=== PATIENT | female | born 1950 | race African-American/Black ===

== ENCOUNTER 2016-11-29 09:17 | Observation (INO) ==
[2016-11-29 11:02] LABS: Basophils % 0.3 %; Eosinophils # 0.2 K/mcL (0.0-0.6); Eosinophils % 2.3 %; Hemoglobin 7.1 g/dL (11.5-15.4); Immature Granulocytes % 0.4 % (0-4); Lymphocytes # 2.5 K/mcL (0.6-4.6); Lymphocytes % 24.7 %; Mean Corpuscular HGB Conc 30.9 g/dL (31.6-35.5); Mean Corpuscular Hemoglobin 25.7 pg (28.0-33.3); Mean Corpuscular Volume 83.3 fL (83.0-100.0); Mean Platelet Volume 13.1 fL (9.4-12.4); Monocytes # 0.6 K/mcL (0.0-1.3); Monocytes % 6.4 %; Neutrophils # 6.6 K/mcL (1.6-8.9); Platelet Count 213 K/mcL (140-400); Red Blood Count 2.76 M/mcL (3.82-4.97); Red Cell Distribution Width 17.5 % (11.5-14.5); Segmented Neutrophils % 65.9 %
[2016-11-29 11:06] LABS: INR 1.5; Prothrombin Time 16.6 Seconds (9.4-12.1)
[2016-11-29 11:08] LABS: Activated Partial Thrombo Time 39.2 Seconds (26.0-36.0)
[2016-11-29 11:15] LABS: Alanine Aminotransferase 12 Units/L (0-55); Albumin/Globulin Ratio 0.8 (1.1-2.2); Alkaline Phosphatase 86 Units/L (38-126); Aspartate Amino Transferase 14 Units/L (5-34); BUN/Creatinine Ratio 14 (6-26); Blood Urea Nitrogen 19 mg/dL (7-20); Calcium 8.9 mg/dL (8.6-10.8); Carbon Dioxide 21 mEq/L (19-29); Chloride 113 mEq/L (98-109); Globulin 3.9 g/dL (2.4-3.5); Glucose 88 mg/dL (70-99); Lipase 48 Units/L (8-78); Osmolality,Calculated 294 (280-300); Potassium 3.5 mEq/L (3.5-4.5); Sodium 141 mEq/L (136-145); Total Protein 6.9 g/dL (6.0-8.3); eGFR For African Americans 46 (> 60); eGFR For Non-African Americans 38 (> 60)
[2016-11-29 11:16] LABS: Bilirubin,Direct < 0.1 mg/dL (0.0-0.5); Bilirubin,Indirect < 0.1 mg/dL (0.0-1.2); Bilirubin,Total < 0.2 mg/dL (0.2-1.2)
--- NOTE | 2016-11-29 11:36 | Emergency Department Note ---
Disposition Clinical Impression: Anemia Qualifiers: Anemia type: unspecified type Qualified Code(s): D64.9 - Anemia, unspecified Disposition: Admitted As Inpatient Condition: Good Referrals: Eli Ling MD [Primary Care Provider] - Forms: Work/School Release, ED Satisfaction Letter Time of Disposition: 12:58 General Adult HPI - General Chief complaint: ED General Medical Stated complaint: 1.7 warfarin level Time Seen by Provider: 11/29/16 10:29 Source: patient Limitations: no limitations Nursing Notes Reviewed: Yes Vital Signs Reviewed: Yes - History of Present Illness HPI Narrative: 66 year old female states that she was sent here by her doctor because her INR level was 1.7, although that is expected because she has stopped her coumadin therapy due to a colonoscpy she is getting tomorrow. There appears to be a disconnect in the why she is here because she sttes tht she is sent here because of an !NR of 1.7, and that the doctors want it below 2. This happens to be the case. She also cannot give me the name of her doctor tht sent her here. She takes coumsin for a artifical valve in her heart. I think that maybe she was sent here for her elevted blood pressures. She states that however her blood pressure is expected to be elevated due to not taking her medications this morning for her blood presure. She is asymptomatic Pain Scale: 0 - Related Data Home Medications Medication Instructions Recorded Confirmed Amlodipine [Norvasc] 5 mg PO DAILY 10/29/14 11/29/16 Docusate Sodium [Colace] 100 mg PO BID PRN 10/29/14 11/29/16 Ferrous Sulfate 325 mg PO BID 10/29/14 11/29/16 Metoprolol [Lopressor] 25 mg PO BID 10/29/14 11/29/16 Nitroglycerin 0.4 mg TD AD PRN 10/29/14 11/29/16 Pregabalin [Lyrica] 75 mg PO BID 10/29/14 11/29/16 [place] Oil/[place]-3 Fatty Acids 1,000 mg PO DAILY 10/29/14 11/29/16 [Fish Oil 500 mg Softgel] Warfarin [Coumadin] 2.5 mg PO CLEMENT 10/29/14 11/29/16 Losartan Potassium [Cozaar] 50 mg PO DAILY 11/01/15 11/29/16 Sennosides/Docusate Sodium [Senna 2 tab PO HS PRN 11/01/15 11/29/16 Plus] Simvastatin [Zocor] 40 mg PO HS 11/01/15 11/29/16 SitaGLIPtin [Januvia] 100 mg PO DAILY 11/01/15 11/29/16 Aspirin Enteric Coated [Aspirin EC] 81 mg PO DAILY 08/03/16 11/29/16 Multivitamin [Multi-Day Vitamins] 1 tab PO DAILY 08/03/16 11/29/16 Bisacodyl [Dulcolax] 5 mg PO QWEEK PRN 08/07/16 11/29/16 Ergocalciferol (VITAMIN D2) 50,000 unit PO QWEEK 08/07/16 11/29/16 [Vitamin D2] glyBURIDE [GlyBURIDE] 5 mg PO BIDWM 08/09/16 11/29/16 Omeprazole [PriLOSEC] 40 mg PO DAILY 11/29/16 11/29/16 Oxycodone HCl [Oxycodone HCl] 10 mg PO TID 11/29/16 11/29/16 Warfarin [Coumadin] 5 mg PO THFRSA 11/29/16 11/29/16 Previous Rx's Medication Instructions Recorded Cyanocobalamin (B-12) [Vitamin B12] 1,000 mcg PO DAILY #30 tablet 11/15/16 Folic Acid 1 mg PO DAILY #30 tablet 11/15/16 Allergies Allergy/AdvReac Type Severity Reaction Status Date / Time gabapentin [From Neurontin] Allergy Itching Verified 11/29/16 09:30 ibuprofen Allergy Itching Verified 11/29/16 09:30 iodine Allergy Hives Verified 11/29/16 09:30 lisinopril Allergy facial Verified 11/29/16 09:30 swelling naproxen [From Naprosyn] Allergy Itching Verified 11/29/16 09:30 Constitutional: Denies: fever, chills, weakness, weight change Eyes: Denies: eye pain, eye discharge, vision change ENT ED: Denies: ear pain, throat pain, dental pain, hearing loss, epistaxis, congestion, dysphagia Cardiovascular: Denies: chest pain, palpitations, dyspnea on exertion, edema, syncope Respiratory: Denies: cough, dyspnea, wheezes, hemoptysis, stridor Gastrointestinal: Denies: abdominal pain, nausea, vomiting, diarrhea, constipation, hematemesis, melena, hematochezia Genitourinary: Denies: dysuria, frequency, hematuria, discharge Musculoskeletal: Denies: back pain, neck pain, arthralgia, myalgia Integumentary: Denies: rash, abrasion, lesions Neurological: Denies: headache, weakness, numbness, paresthesias, confusion, abnormal gait, vertigo Psychiatric: Denies: anxiety, depression, suicidal thoughts, homicidal thoughts , auditory hallucinations, visual hallucinations Endocrine: Denies: fatigue Hematological/Lymphatic: Denies: easy bleeding, easy bruising Allergic/Immunologic: Denies: facial swelling, urticaria Past Medical History - Past Medical History Medical history: Reports: coronary artery disease, CVA, DVT, diabetes, hyperlipidemia, hypertension, renal disease Surgical history: Reports: heart valve replacement, hysterectomy Psychiatric history: Reports: depression - Social History Smoking Status: Current every day smoker Smokeless Tobacco Status: No Alcohol use: Reports: none Drug use: Reports: none Physical Exam - General Limitations: no limitations General appearance: alert, in no apparent distress - Head Head exam: atraumatic, normocephalic, normal inspection - Eye Eye exam: Present: normal appearance, PERRL, EOMI - Expanded Eye Exam Pupils: Left: reactive - ENT ENT exam: normal exam, normal oropharynx, mucous membranes moist - Expanded ENT Exam External ear exam: Present: normal external inspection Mouth exam: Present: normal external inspection Teeth exam: Present: normal inspection Throat exam: Present: normal inspection - Neck Neck exam: Present: normal inspection, full ROM, trachea midline - Chest Chest inspection: Present: normal inspection, symmetric chest wall rise - Respiratory Respiratory exam: Present: normal lung sounds bilaterally - Cardiovascular Cardiovascular exam: Present: regular rate, normal rhythm, normal heart sounds - Abdominal Exam Abdominal exam: Present: soft, Non-Tender. Absent: tenderness, distention, guarding, rebound, rigidity - Extremities Exam Extremities exam: Present: normal inspection, full ROM. Absent: tenderness, pedal edema - Expanded Upper Extremity Exam Shoulder exam: Present: normal inspection, full ROM Arm exam: Present: normal inspection, full ROM Elbow exam: Present: normal inspection, full ROM Forearm/Wrist exam: Present: normal inspection, full ROM Hand exam: Present: normal inspection, full ROM Vascular exam: Normal: capillary refill, radial pulse - Expanded Lower Extremity Exam Hip/Pelvis exam: Present: normal inspection, full ROM Upper leg exam: Present: normal inspection, full ROM Knee exam: Present: normal inspection, full ROM Lower leg exam: Present: normal inspection, full ROM Ankle exam: Present: normal inspection, full ROM Foot/toe exam: Present: normal inspection, full ROM Neurovascular/Tendon exam: Absent: motor deficit, sensory deficit, tendon deficit - Back Exam Back exam: Present: normal inspection, full ROM. Absent: tenderness - Neurological Exam Neurological exam: Present: alert, oriented X3 - Expanded Neurological Exam Patient oriented to: Present: person, place, time Coma Scale Eye Opening: Spontaneous Coma Scale Motor Response: Obeys Commands Coma Scale Verbal Response: Oriented Coma Scale Total: 15 - Psychiatric Psychiatric exam: Present: normal affect, normal mood - Skin Skin exam: Present: warm, dry, intact, normal color Course Course Narrative: we will do a HTN workup and treat with hydralazine - Reevaluation(s) Reevaluation #1: after discussing resutls with the bing it appers it is her HGB of 7.1 and not INR of 1.7 that is the problme. She has a history of numerous tranfsions including one from last week and thus the reasons for the colonoscopy tomrrow. She stephen blood from the rectum or bloody stools. We will admit ot moises with 2 units transfusion. Time: 12:43 - Consultations Consultation #1: discussed case with Dr. Leone and he accepst nilda for admission. Time: 01:30 Vital Signs Temperature 98.3 F 11/29/16 09:27 Pulse Rate 68 11/29/16 09:27 Respiratory Rate 18 11/29/16 09:27 Blood Pressure 202/72 11/29/16 09:27 O2 Sat by Pulse Oximetry 100 11/29/16 09:27 Temperature 98.3 F 11/29/16 09:27 Pulse Rate 62 11/29/16 11:47 Respiratory Rate 16 11/29/16 11:47 Blood Pressure 165/50 11/29/16 11:47 O2 Sat by Pulse Oximetry 100 11/29/16 09:27 Oxygen Delivery Oxygen Delivery Room Air Medical Decision Making - Lab Data Result diagrams: 11/29/16 10:53 11/29/16 10:53 Lab Results 11/29/16 11/29/16 11/29/16 Range/Units 10:53 10:53 10:53 WBC (4.3-11.1) K/mcL RBC (3.82-4.97) M/mcL Hgb (11.5-15.4) g/dL Hct (35.3-44.9) % MCV (83.0-100.0) fL MCH (28.0-33.3) pg MCHC (31.6-35.5) g/dL RDW (11.5-14.5) % Plt Count (140-400) K/mcL MPV (9.4-12.4) fL Immature Gran % (0-4) % Seg Neutrophils % % Lymphocytes % % Monocytes % % Eosinophils % % Basophils % % Neutrophils # (1.6-8.9) K/mcL Lymphocytes # (0.6-4.6) K/mcL Monocytes # (0.0-1.3) K/mcL Eosinophils # (0.0-0.6) K/mcL Basophils # (0.0-0.2) K/mcL PT 16.6 H (9.4-12.1) Seconds INR 1.5 APTT 39.2 H (26.0-36.0) Seconds Sodium 141 (136-145) mEq/L Potassium 3.5 (3.5-4.5) mEq/L Chloride 113 H (98-109) mEq/L Carbon Dioxide 21 (19-29) mEq/L BUN 19 (7-20) mg/dL Creatinine 1.39 H (0.57-1.11) mg/dL Est GFR ( Amer) 46 L (> 60) Est GFR (Non-Af Amer) 38 L (> 60) BUN/Creatinine Ratio 14 (6-26) Glucose 88 (70-99) mg/dL Calculated Osmolality 294 (280-300) Calcium 8.9 (8.6-10.8) mg/dL Total Bilirubin < 0.2 L (0.2-1.2) mg/dL Direct Bilirubin < 0.1 (0.0-0.5) mg/dL Indirect Bilirubin < 0.1 (0.0-1.2) mg/dL AST 14 (5-34) Units/L ALT 12 (0-55) Units/L Alkaline Phosphatase 86 (38-126) Units/L Troponin I (0-0.03) ng/mL B-Natriuretic Peptide 338 H (0-100) pg/mL Serum Total Protein 6.9 (6.0-8.3) g/dL Albumin 3.0 L (3.5-5.0) g/dL Globulin 3.9 H (2.4-3.5) g/dL Albumin/Globulin Ratio 0.8 L (1.1-2.2) Lipase 48 (8-78) Units/L 11/29/16 11/29/16 Range/Units 10:53 10:53 WBC 10.1 (4.3-11.1) K/mcL RBC 2.76 L (3.82-4.97) M/mcL Hgb 7.1 L (11.5-15.4) g/dL Hct 23.0 L (35.3-44.9) % MCV 83.3 (83.0-100.0) fL MCH 25.7 L (28.0-33.3) pg MCHC 30.9 L (31.6-35.5) g/dL RDW 17.5 H (11.5-14.5) % Plt Count 213 (140-400) K/mcL MPV 13.1 H (9.4-12.4) fL Immature Gran % 0.4 (0-4) % Seg Neutrophils % 65.9 % Lymphocytes % 24.7 % Monocytes % 6.4 % Eosinophils % 2.3 % Basophils % 0.3 % Neutrophils # 6.6 (1.6-8.9) K/mcL Lymphocytes # 2.5 (0.6-4.6) K/mcL Monocytes # 0.6 (0.0-1.3) K/mcL Eosinophils # 0.2 (0.0-0.6) K/mcL Basophils # 0.0 (0.0-0.2) K/mcL PT (9.4-12.1) Seconds INR APTT (26.0-36.0) Seconds Sodium (136-145) mEq/L Potassium (3.5-4.5) mEq/L Chloride (98-109) mEq/L Carbon Dioxide (19-29) mEq/L BUN (7-20) mg/dL Creatinine (0.57-1.11) mg/dL Est GFR ( Amer) (> 60) Est GFR (Non-Af Amer) (> 60) BUN/Creatinine Ratio (6-26) Glucose (70-99) mg/dL Calculated Osmolality (280-300) Calcium (8.6-10.8) mg/dL Total Bilirubin (0.2-1.2) mg/dL Direct Bilirubin (0.0-0.5) mg/dL Indirect Bilirubin (0.0-1.2) mg/dL AST (5-34) Units/L ALT (0-55) Units/L Alkaline Phosphatase (38-126) Units/L Troponin I 0.01 (0-0.03) ng/mL B-Natriuretic Peptide (0-100) pg/mL Serum Total Protein (6.0-8.3) g/dL Albumin (3.5-5.0) g/dL Globulin (2.4-3.5) g/dL Albumin/Globulin Ratio (1.1-2.2) Lipase (8-78) Units/L - EKG Data EKG #1 EKG attestation: Yes I reviewed and interpreted this EKG. EKG results narrative: NSR with rate of 64. NO STEMI. normal intervals. no old ekg. 0829
[2016-11-29] MEDS ORDERED: Sennosides/Docusate Sodium TABLET PO PRN (13:42)
[2016-11-29] MEDS ORDERED: Nitroglycerin 0.4 MG PATCH.TD24 TD PRN (13:42)
[2016-11-29] MEDS ORDERED: Naloxone 0.4 MG/ML INJ IVP PRN (13:45)
[2016-11-29] MEDS ORDERED: Dextrose Gel 15 GM PO PRN ×2 (13:53)
[2016-11-29] MEDS ORDERED: *HR* Dextrose 50 % in Water (Syg) 50 ML SYRINGE IVP PRN (13:53)
[2016-11-29] MEDS ORDERED: D5% in Water 1,000 ML IVC PRN (13:53)
[2016-11-29] MEDS ORDERED: Heparin 25,000 UNIT/500 ML D5W 25,000 UNIT/500 ML MLS IVC SCH (14:00)
--- NOTE | 2016-11-29 14:01 | Internal Med History&Physical ---
Date of Encounter: 11/29/16 Time of Encounter: 13:00 Assessment and Plan (1) Anemia Current visit: Yes Status: Acute multifactorial anemia due to monoclonal gammopathy, chronic kidney disease, iron deficiency. Rule out colonic source with colonoscopy tomorrow. Patient has symptomatic anemia, given her hemoglobin of 7.1, and potential surgical biopsy, will transfuse 1 unit packed red blood cells She does not appear to be actively bleeding. Heparin drip as discussed with . Coumadin is held. Will repeat INR in the morning. Restart anticoagulation when appropriate by gastroenterology. Qualifiers: Anemia type: unspecified type Qualified Code(s): D64.9 - Anemia, unspecified (2) CKD (chronic kidney disease), stage III Current visit: No Status: Acute stable, monitor. (3) SAHARA (iron deficiency anemia) Current visit: No Status: Acute outpatient iron infusions. Qualifiers: Iron deficiency anemia type: unspecified iron deficiency Qualified Code(s) : D50.9 - Iron deficiency anemia, unspecified (4) MGUS (monoclonal gammopathy of unknown significance) Current visit: No Status: Chronic followed by oncology (5) DVT (deep venous thrombosis) Current visit: Yes Status: Acute Remote on chart review, pt denies hx DVT Qualifiers: (6) Diabetes mellitus Current visit: Yes Status: Acute Qualifiers: Diabetes mellitus type: type 2 Diabetes mellitus complication status: with kidney complications Diabetes mellitus complication detail: with nephropathy (7) Hypertension Current visit: Yes Status: Acute Elebvated, continue, home medications, monitor IV Hydralazine prn Internal Medicine - H&P: HPI Admitted From: Emergency Dept Plans for Post Hospital Care: Home History of present illness: Ms. Sanchez is a 66 year old female with a past medical history of a mechanical mitral valve in 2016 for which she is chronically on Coumadin. he also has non- insulin-dependent diabetes mellitus type II, chronic kidney disease stage III, hypertension, chronic pain. She also has a history of anemia worked up by both gastroenterology and hematology. MGUS followed by oncology. She had a colonoscopy about a 1 month ago which was an incomplete study. She is now admitted for colonoscopy in the morning. she last took Coumadin 3 days ago. Her INR today is 1.5. We are asked to admit this patient, place her on a heparin drip, in preparation for her procedure. Patient has been seen by hematology and has received IV iron and oral folate supplementation. Records indicate her baseline hemoglobin in the 8-10 range over the last several months. today it is 7.1. Patient does report fatigue. She denies any chest pain or shortness of breath No N/V/D, no F/C. no blood in stool. She states she received a unit of blood about a week ago. Past Med Surg Social Fam HX - Past Medical History Medical history: coronary artery disease, CVA, DVT, diabetes, hyperlipidemia, hypertension, renal disease, other (anemia) Psychiatric history: depression - Past Surgical History Surgical History: heart valve replacement, hysterectomy - Social History Smoking Status: Current every day smoker Smokeless Tobacco Status: No Alcohol use: none Drug use: none Internal Medicine - H&P: Meds Amlodipine [Norvasc] 5 mg PO DAILY 10/29/14 [History] Docusate Sodium [Colace] 100 mg PO BID PRN 10/29/14 [History] Ferrous Sulfate 325 mg PO BID 10/29/14 [History] Metoprolol [Lopressor] 25 mg PO BID 10/29/14 [History] Nitroglycerin 0.4 mg TD AD PRN 10/29/14 [History] Pregabalin [Lyrica] 75 mg PO BID 10/29/14 [History] [place] Oil/[place]-3 Fatty Acids [Fish Oil 500 mg Softgel] 1,000 mg PO DAILY 10/29 [History] Warfarin [Coumadin] 2.5 mg PO CLEMENT 10/29/14 [History] Losartan Potassium [Cozaar] 50 mg PO DAILY 11/01/15 [History] Sennosides/Docusate Sodium [Senna Plus] 2 tab PO HS PRN 11/01/15 [History] Simvastatin [Zocor] 40 mg PO HS 11/01/15 [History] SitaGLIPtin [Januvia] 100 mg PO DAILY 11/01/15 [History] Aspirin Enteric Coated [Aspirin EC] 81 mg PO DAILY 08/03/16 [History] Multivitamin [Multi-Day Vitamins] 1 tab PO DAILY 08/03/16 [History] Bisacodyl [Dulcolax] 5 mg PO QWEEK PRN 08/07/16 [History] Ergocalciferol (VITAMIN D2) [Vitamin D2] 50,000 unit PO QWEEK 08/07/16 [History] glyBURIDE [GlyBURIDE] 5 mg PO BIDWM 08/09/16 [History] Cyanocobalamin (B-12) [Vitamin B12] 1,000 mcg PO DAILY #30 tablet 11/15/16 [Rx] Folic Acid 1 mg PO DAILY #30 tablet 11/15/16 [Rx] Omeprazole [PriLOSEC] 40 mg PO DAILY 11/29/16 [History] Oxycodone HCl [Oxycodone HCl] 10 mg PO TID 11/29/16 [History] Warfarin [Coumadin] 5 mg PO THFRSA 11/29/16 [History] 3 Allergy/AdvReac Type Severity Reaction Status Date / Time gabapentin [From Neurontin] Allergy Itching Verified 11/29/16 09:30 ibuprofen Allergy Itching Verified 11/29/16 09:30 iodine Allergy Hives Verified 11/29/16 09:30 lisinopril Allergy facial Verified 11/29/16 09:30 swelling naproxen [From Naprosyn] Allergy Itching Verified 11/29/16 09:30 All Systems PM: A 10-system review of systems was performed and is negative for pertinent findings except as documented above in the HPI. - Constitutional Vitals: Temp Pulse Resp BP Pulse Ox 98.3 F 62 17 165/45 100 11/29/16 09:27 11/29/16 11:47 11/29/16 13:36 11/29/16 13:36 11/29/16 09:27 General appearance: Present: A&O X 3, pleasant, no acute distress - Eye Eye exam: Present: sclera anicteric (pale) Internal Med - H&P Results - Labs CBC & Chem 7: 11/29/16 10:53 11/29/16 10:53
[2016-11-29] MEDS ORDERED: *HR* Heparin 5,000 UNIT/ML VIAL IVP PRN ×2 (14:39)
[2016-11-29] MEDS ORDERED: Lidocaine -MPF 2% 2 ML VIAL INFILT ONE (15:24)
--- NOTE | 2016-11-29 15:34 | Gastroenterology Consult Note ---
<Natalya Fuentes - Last Filed: 11/29/16 18:18> Date of Encounter: 11/29/16 Time of Encounter: 15:26 - Assessment and plan (1) Anemia Current Visit: Yes Status: Acute Assessment and plan: Patient recently had colonoscopy 08/07/16, which was incomplete due to poor prep. She had non bleeding polyps removed from the ascending, transverse, and sigmoid colon. Her EGD was unremarkable. At that time, repeat colonoscopy was recommended in three months for surveillance. Hg today 7.1. Baseline Hg 9-10 INR today 1.5 Plan: colonoscopy tomorrow. Hold coumadin, continue heparin gtt. Please stop heparin gtt at 7am tomorrow clear liquid diet today, no red or purple dyes. NPO after 10am tomorrow morning dulculax, Miralax bowel prep tonight. If bowel movements not clear by tomorrow morning, give two water tap enemas and another 1/2 miralax prep. Qualifiers: Anemia type: unspecified type Qualified Code(s): D64.9 - Anemia, unspecified (2) Mechanical heart valve present Current Visit: Yes Status: Chronic Assessment and plan: holding coumadin, on heparin gtt - Time Spent With Patient Total time spent is greater than 50% in coordination of care (as documented) at patient's floor/unit and/or counseling patient: GI History of Present Illness - Data of Consult Consult date: 11/29/16 Requesting Physician: Cris Pineda CNP - Consult Narrative Reason for consult: anemia History of present illness: Ms. Sanchez is a 66 year old female with PMHx of mechanical mitral valve placed in 2016 (on coumadin), DM type II, CKD stage 3, HTN, chronic pain, anemia, MGUS. Patient recently had colonoscopy 08/07/16, which was incomplete due to poor prep. She had non bleeding polyps removed from the ascending, transverse, and sigmoid colon. Her EGD was unremarkable. At that time, repeat colonoscopy was recommended in three months for surveillance. She is Admitted now for colonoscoy in the morning. Her last coumadin dose was 3 days ago, INR today is 1.5. She is admitted, will be placed on heparin drip in preparation for her procedure tomorrow morning. She is currently being followed by Heme/onc for MGUS and anemia. patient denies nausea, vomiting, diarrhea, chest pain, shortness of breath, fever, chills, hematuria, hematochezia. she does admit to melena that started yesterday. she denies any further problems today. Past Med Surg Social Fam HX - Past Medical History Medical history: coronary artery disease, CVA, DVT, diabetes, hyperlipidemia, hypertension, renal disease, other (anemia) Psychiatric history: depression - Past Surgical History Surgical History: heart valve replacement, hysterectomy - Social History Smoking Status: Current every day smoker Smokeless Tobacco Status: No Alcohol use: none Drug use: none - Family History Mother Living Status: Age at : 65 Hx Family Cardiac Disorders: Yes Father Living Status: Age at : 66 Hx Family Cardiac Disorders: Yes (stroke) All systems PM: reviewed and no additional remarkable complaints except as stated - Constitutional Vitals: Temp Pulse Resp BP Pulse Ox 97.9 F 70 16 200/78 100 11/29/16 13:56 11/29/16 13:56 11/29/16 13:56 11/29/16 13:56 11/29/16 13:56 General appearance: Present: A&O X 3, pleasant, no acute distress - Head Head exam: Present: atraumatic, normocephalic - Neck Neck exam general surgery: Present: supple, trachea midline - Respiratory Additional comments: left sided rales present. - Cardiovascular Cardiovascular exam: Present: RRR, +S1, +S2 - GI/Abdominal GI/Abdominal exam: Present: normal bowel sounds, soft. Absent: distended, tenderness - Extremities Exam Extremities exam: Absent: cyanotic Additional comments: non pitting lower extremity edema present bilaterally. - Neurological Exam Neurological exam: Present: alert, oriented X3, no focal deficits - Psychiatric Psychiatric exam: Present: normal affect, normal mood - Skin Skin exam: Present: intact Results - Labs CBC & Chem 7: 11/29/16 10:53 11/29/16 10:53 Labs: Last Result Calcium 8.9 mg/dL (8.6-10.8) 11/29/16 10:53 Troponin I 0.01 ng/mL (0-0.03) 11/29/16 10:53 Entire Visit Hgb 7.1 g/dL (11.5-15.4) L 11/29/16 10:53 Hct 23.0 % (35.3-44.9) L 11/29/16 10:53 PT 16.6 Seconds (9.4-12.1) H 11/29/16 10:53 Total Bilirubin < 0.2 mg/dL (0.2-1.2) L 11/29/16 10:53 AST 14 Units/L (5-34) 11/29/16 10:53 ALT 12 Units/L (0-55) 11/29/16 10:53 Lipase 48 Units/L (8-78) 11/29/16 10:53 - ABG ABG results: PT/INR, D-dimer PT 16.6 Seconds (9.4-12.1) H 11/29/16 10:53 Consult Discharge Plan - Plan Referrals: Eli Ling MD [Primary Care Provider] - <[email or web address] - Last Filed: 11/29/16 18:49> Date of Encounter: 11/29/16 Time of Encounter: 17:30 - Time Spent With Patient Total time spent is greater than 50% in coordination of care (as documented) at patient's floor/unit and/or counseling patient: GI History of Present Illness - Data of Consult Requesting Physician: Cris Pineda CNP - Consult Narrative History of present illness: Ms. Sanchez is a 66 year old female - Constitutional Vitals: Temp Pulse Resp BP Pulse Ox 97.9 F 70 16 200/78 100 11/29/16 13:56 11/29/16 13:56 11/29/16 13:56 11/29/16 13:56 11/29/16 13:56 Results - Labs CBC & Chem 7: 11/29/16 10:53 11/29/16 10:53 Labs: Last Result Calcium 8.9 mg/dL (8.6-10.8) 11/29/16 10:53 Troponin I 0.01 ng/mL (0-0.03) 11/29/16 10:53 Entire Visit Hgb 7.1 g/dL (11.5-15.4) L 11/29/16 10:53 Hct 23.0 % (35.3-44.9) L 11/29/16 10:53 PT 16.6 Seconds (9.4-12.1) H 11/29/16 10:53 Total Bilirubin < 0.2 mg/dL (0.2-1.2) L 11/29/16 10:53 AST 14 Units/L (5-34) 11/29/16 10:53 ALT 12 Units/L (0-55) 11/29/16 10:53 Lipase 48 Units/L (8-78) 11/29/16 10:53 - ABG ABG results: PT/INR, D-dimer PT 16.6 Seconds (9.4-12.1) H 11/29/16 10:53 - Attending Attestation I examined this patient and my medical decision-making was reviewed with the Resident Physician. I agree with the documented findings, disposition and treatment plan as described except to the extent set forth below.
--- NOTE | 2016-11-29 16:17 | Electrocardiograph Report ---
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
[2016-11-29] MEDS: *HR* OxyCODONE Immed Rel 5 MG TABLET PO SCH ×2 (16:21→21:16)
[2016-11-29] MEDS: Insulin LISPRO 300 UNITS/3 ML VIAL SQ SCH (17:14)
[2016-11-29] MEDS ORDERED: Polyethylene Glycol 3350 255 GM POWDER PO ONE (18:17)
[2016-11-29] MEDS ORDERED: 0.9 % Sodium Chloride 250 ML ONE (20:51)
[2016-11-29] MEDS: Pregabalin 25 MG CAPSULE PO SCH (21:16)
[2016-11-30] MEDS: Insulin LISPRO 300 UNITS/3 ML VIAL SQ SCH ×2 (03:00→06:53)
[2016-11-30] MEDS ORDERED: Ondansetron 4 MG/2 ML VIAL ONE (03:10)
[2016-11-30 06:34] LABS: Basophils % 0.3 %; Eosinophils # 0.2 K/mcL (0.0-0.6); Eosinophils % 1.9 %; Hematocrit 24.8 % (35.3-44.9); Hemoglobin 7.8 g/dL (11.5-15.4); Immature Granulocytes % 0.3 % (0-4); Lymphocytes % 17.5 %; Mean Corpuscular HGB Conc 31.5 g/dL (31.6-35.5); Mean Corpuscular Hemoglobin 26.2 pg (28.0-33.3); Mean Corpuscular Volume 83.2 fL (83.0-100.0); Mean Platelet Volume 12.5 fL (9.4-12.4); Monocytes # 0.7 K/mcL (0.0-1.3); Monocytes % 6.4 %; Neutrophils # 8.4 K/mcL (1.6-8.9); Platelet Count 196 K/mcL (140-400); Red Blood Count 2.98 M/mcL (3.82-4.97); Red Cell Distribution Width 17.3 % (11.5-14.5); Segmented Neutrophils % 73.6 %
[2016-11-30 07:15] LABS: INR 1.6; Prothrombin Time 16.9 Seconds (9.4-12.1)
[2016-11-30 07:32] LABS: Activated Partial Thrombo Time 136.7 Seconds (26.0-36.0)
[2016-11-30 07:41] LABS: Heparin anti-factor XA UFH 0.5 IU/mL (0.30-0.70)
[2016-11-30] MEDS: *HR* OxyCODONE Immed Rel 5 MG TABLET PO SCH (08:02)
[2016-11-30] MEDS: Pregabalin 25 MG CAPSULE PO SCH (08:02)
[2016-11-30] MEDS ORDERED: Cyanocobalamin (B-12) 1,000 MCG TABLET PO SCH (09:00)
[2016-11-30] MEDS ORDERED: amLODIPine 5 MG TABLET PO SCH (09:00)
[2016-11-30] MEDS ORDERED: Folic Acid 1 MG TABLET PO SCH (09:00)
[2016-11-30] MEDS ORDERED: Multivit/Ca/Min/Fe/FA 1 TAB TABLET PO SCH (09:00)
--- NOTE | 2016-11-30 09:28 | Event Note ---
Date of Encounter: 11/30/16 Time of Encounter: 09:24 Went to check up on patient this morning. She only was able to drink about half her bowel prep last night and had multiple episodes of vomiting. She also received one enema and refused the second one and did not have any bowel movements. Dr. Villalba had offered the patient an alternative bowel prep so that she can get the colonoscopy tomorrow, and she refused. patient stated that she just wants to go home. patient was told that even if she does not get the colonoscopy today, she still needs to stay in the hospital in order to bring her INR back to therapeutic level for safe discharge because of her mechanical valve. Patient expressed understanding, but still stated that she would rather "just go home" and does not want to stay in the hospital. Hospitalist service made aware of the situation. Patient was alert and oriented x3, and fully understands the situation.
--- NOTE | 2016-11-30 10:31 | Discharge Summary ---
Date of Encounter: 11/30/16 Time of Encounter: 08:30 - Discharge Diagnosis (1) Anemia Priority: Primary Status: Chronic Comments: Anemia is multifactorial due to MGUS, CKD and SAHARA. Pt was sent by coumadin clinic for direct admission for procedure by Dr. Villalba. She received 1 unit PRBCs and Hgb is 7.8 today. Pt states that she is chronically anemic and feels no differntly than normal. She was to have a colonoscopy today. She vomited after drinking some of the prep last night and was unable to complete it, she also only allowed staff to give her 1 enema. She was seen by GI resident this a.m. and states that she does not want to continue with the procedure and also does not want to stay to bridge from heparin gtt to Coumadin. She has signed out AMA. Qualifiers: Anemia type: unspecified type Qualified Code(s): D64.9 - Anemia, unspecified (2) DVT (deep venous thrombosis) Priority: Secondary Status: Acute Comments: Per pt history. Will follow up with Coumadin clinic. Qualifiers: Affected thrombotic vein of extremity: unspecified vein of extremity Chronicity: unspecified Laterality: unspecified laterality Qualified Code(s) : I82.409 - Acute embolism and thrombosis of unspecified deep veins of unspecified lower extremity (3) Diabetes mellitus Priority: Secondary Status: Chronic Comments: Continue home medications and accuchecks per home regimen. Qualifiers: Diabetes mellitus type: type 2 Diabetes mellitus complication status: with kidney complications Diabetes mellitus complication detail: with nephropathy Diabetes mellitus adjunct faculty for medical terminology insulin use: unspecified shelter insulin use status Qualified Code(s): E11.21 - Type 2 diabetes mellitus with diabetic nephropathy (4) Hypertension Priority: Secondary Status: Chronic Comments: Continue home medications. Qualifiers: Hypertension type: unspecified Qualified Code(s): I10 - Essential (primary ) hypertension (5) Mechanical heart valve present Priority: Secondary Status: Chronic Comments: Pt takes Coumadin. Coumadin was held for colonoscopy today and she was placed on a heparin gtt. She has signed out AMA and refused to stay for bridge. I spoke with Radha, pharmacist, at the coumadin clinic and she is aware, states that she will call pt today to get her to come in for treatment. (6) SAHARA (iron deficiency anemia) Priority: Secondary Status: Chronic Comments: Continue Ferrous Sulfate. Qualifiers: Iron deficiency anemia type: unspecified iron deficiency Qualified Code(s) : D50.9 - Iron deficiency anemia, unspecified (7) CKD (chronic kidney disease), stage III Priority: Secondary Status: Chronic Comments: Sr Cr 1.39, GFR 38, at pt's baseline. Continue to avoid nephrotoxins and NSAIDs. Follow up with PCP. (8) MGUS (monoclonal gammopathy of unknown significance) Priority: Secondary Status: Chronic - Discharge Medications Home Medications: Amlodipine [Norvasc] 5 mg PO DAILY 10/29/14 [History] Docusate Sodium [Colace] 100 mg PO BID PRN 10/29/14 [History] Ferrous Sulfate 325 mg PO BID 10/29/14 [History] Metoprolol [Lopressor] 25 mg PO BID 10/29/14 [History] Nitroglycerin 0.4 mg TD AD PRN 10/29/14 [History] Pregabalin [Lyrica] 75 mg PO BID 10/29/14 [History] [place] Oil/[place]-3 Fatty Acids [Fish Oil 500 mg Softgel] 1,000 mg PO DAILY 10/29 [History] Warfarin [Coumadin] 2.5 mg PO CLEMENT 10/29/14 [History] Losartan Potassium [Cozaar] 50 mg PO DAILY 11/01/15 [History] Sennosides/Docusate Sodium [Senna Plus] 2 tab PO HS PRN 11/01/15 [History] Simvastatin [Zocor] 40 mg PO HS 11/01/15 [History] SitaGLIPtin [Januvia] 100 mg PO DAILY 11/01/15 [History] Aspirin Enteric Coated [Aspirin EC] 81 mg PO DAILY 08/03/16 [History] Multivitamin [Multi-Day Vitamins] 1 tab PO DAILY 08/03/16 [History] Bisacodyl [Dulcolax] 5 mg PO QWEEK PRN 08/07/16 [History] Ergocalciferol (VITAMIN D2) [Vitamin D2] 50,000 unit PO QWEEK 08/07/16 [History] glyBURIDE [GlyBURIDE] 5 mg PO BIDWM 08/09/16 [History] Cyanocobalamin (B-12) [Vitamin B12] 1,000 mcg PO DAILY #30 tablet 11/15/16 [Rx] Folic Acid 1 mg PO DAILY #30 tablet 11/15/16 [Rx] Omeprazole [PriLOSEC] 40 mg PO DAILY 11/29/16 [History] Oxycodone HCl [Oxycodone HCl] 10 mg PO TID 11/29/16 [History] Warfarin [Coumadin] 5 mg PO THFRSA 11/29/16 [History] Allergies/Adverse Reactions: 3 Allergy/AdvReac Type Severity Reaction Status Date / Time gabapentin [From Neurontin] Allergy Itching Verified 11/29/16 09:30 ibuprofen Allergy Itching Verified 11/29/16 09:30 iodine Allergy Hives Verified 11/29/16 09:30 lisinopril Allergy facial Verified 11/29/16 09:30 swelling naproxen [From Naprosyn] Allergy Itching Verified 11/29/16 09:30 Date of admission: 11/29/16 13:24 Primary care physician: Eli Ling MD Consults: 11/29/16 13:47 Consult to Gastroenterology [CONS] Routine Consulting Provider: Gastroenterology Lorraine Reason for Consult: anemia Time Notified: 13:47 Call Completed: Yes 11/29/16 14:32 Consult to Invasive Line Access Team [CONS] Routine Reason for Consult: limited iv access, heparin and blood infusions Line Type: EPIV Discharging clinician: Cris Pineda Anticipated date of discharge: 11/30/16 - Patient Status Disposition: Left Against Medical Advice Condition: Fair Overall status at discharge: other - Discharge Instructions Follow Up With: Eli Ling MD [Primary Care Provider] - Additional Instructions: Pt has signed out AMA. Will follow up with Coumadin clinic. Hospital course: Ms. Sanchez is a 66 year old female with past medical history of chronic anemia, DVT, MGUS, iron deficiency anemia, CKD III, diabetes, hypertension. Patient was sent by Coumadin clinic yesterday for evaluation and direct admission for colonoscopy by Dr. Villalba today. Patient's Coumadin was stopped and she was placed on a heparin drip. Apparently overnight she did not tolerate the oral bowel prep and had nausea and vomiting. She did one enema with no results, she refused any more. She was seen by GI resident this morning, patient did not wish to proceed with procedure today. She states that she is chronically anemic and that she has had scopes done in the past and she does not want to do it again. She also declined staying for bridge from heparin to Coumadin. She states that she just wants to go home and does not want to do any of this. She states that she feels fine and feels no different than normal. Patient is insistent that she does not want to proceed with the procedure and wants to go home. She has signed out AMA. I spoke with Shante and Radha at the Coumadin clinic, they are aware of the fact that patient will need to restart her Coumadin. They state that she is normally adherent to the recommendations and treatments and they feel certain that she will come to clinic for dosing either today or tomorrow. - Time Spent with Patient Total time spent providing and/or coordinating discharge services: Less than 30 minutes - Constitutional Vitals: Temp Pulse Resp BP Pulse Ox 97.7 F 61 13 188/66 99 11/30/16 08:14 11/30/16 08:14 11/30/16 08:14 11/30/16 08:14 11/30/16 08:14 General appearance: Present: A&O X 3, pleasant, no acute distress, answers questions appropriately - Head Head exam: Present: atraumatic, normal inspection, normocephalic - Eye Eye exam: Present: normal appearance, conjuntiva pink, sclera anicteric - Neck Neck exam general surgery: Present: supple, trachea midline. Absent: lymphadenopathy - Respiratory Respiratory exam: Present: CTAB. Absent: accessory muscle use, chest wall tenderness, rales, rhonchi, wheezes - Cardiovascular Cardiovascular exam: Present: RRR, +S1, +S2. Absent: diastolic murmur, gallop, rubs, systolic murmur - GI/Abdominal GI/Abdominal exam: Present: normal bowel sounds, soft, no peritoneal signs. Absent: distended, hernia, hepatomegaly, tenderness - Extremities Exam Extremities exam: Present: normal capillary refill, normal inspection, warm, radial pulses palpable and symmetrical. Absent: calf tenderness, cyanotic, pedal edema, tenderness - Neurological Exam Neurological exam: Present: alert, oriented X3, no focal deficits. Absent: facial droop, speech deficit - Skin Skin exam: Present: dry, intact, pallor, warm. Absent: rash
[2016-11-30 15:20] VITALS: BP 132/77
== END 2016-11-30 10:52 | disposition left against medical advice (07) ==
LOC: EMEROO 09:17 → 3BNU 09:17
PROVIDERS: ADMIT Internal Medicine; ATTEND Registered Nurse

== ENCOUNTER 2018-11-04 12:14 | Observation (INO) ==
--- NOTE | 2018-11-04 12:47 | Emergency Department Note ---
Disposition Clinical Impression: Elevated serum creatinine, Troponin I above reference range, Generalized weakness, Chronic anemia, Urinary tract infection, Recurrent falls Disposition: Admitted As Inpatient Condition: Fair Time of Disposition: 15:44 General Adult HPI - General Chief complaint: ED Fall Stated complaint: multiple falls,fatigue Time Seen by Provider: 11/04/18 12:35 Source: patient, family Mode of arrival: ambulatory Limitations: no limitations Nursing Notes Reviewed: Yes Vital Signs Reviewed: Yes - History of Present Illness HPI Narrative: 68-year-old female past medical history of diabetes, CHF, COPD, CAD, currently on insulin and warfarin presenting to the ED for 2 week history of gradually progressive and worsening weakness particularly in the lower extremities with multiple falls. The patient's brother states that when he spoke with her on the phone this morning she seemed slow to respond and he went to visit her and found that she was "not acting herself." Patient's brother called 911 the patient refused transport and so the brother brought her here in private vehicle at that time. Patient is currently complaining of worsening bilateral lower extremity swelling which she states is consistent with her history of CHF, she also feels weak and fatigued with lack of energy and states that she is falling because of lower extremity weakness and not experiencing any prodromal symptoms prior to the fall. The patient has no other concerns or complaints at this time. The patient does have a small knot noted to the 4 head area but she states this is not related to a fall and has been there previously. Upon my initial evaluation, my general impression is that the patient is awake, alert, oriented, engaged to conversation and answering questions appropriately. There are no overt lateralizing signs, the patient is in no acute distress; their skin appears to be normal in color, they are not pale, not cyanotic, and not diaphoretic, they are sitting up in hospital bed interacting appropriately with environment. Onset (ago): week(s) Location: lower extremity Pain Scale: 0 Associated symptoms: Reports: weakness Treatments Prior to Arrival: none - Related Data Home Medications Medication Instructions Recorded Confirmed Docusate Sodium [Colace] 100 mg PO BID PRN 10/29/14 07/11/18 Pregabalin [Lyrica] 75 mg PO BID 10/29/14 07/11/18 Simvastatin [Zocor] 40 mg PO HS 11/01/15 07/11/18 SitaGLIPtin [Januvia] 100 mg PO DAILY 11/01/15 07/11/18 Omeprazole [PriLOSEC] 40 mg PO DAILY 11/29/16 07/11/18 OxyCODONE Immed Rel [Roxicodone 10 10 mg PO TID PRN 11/29/16 07/11/18 MG] Ferrous Sulfate [Iron] 325 mg PO BID 07/11/18 07/11/18 Metoprolol [Lopressor] 25 mg PO BID 07/11/18 07/11/18 Spironolactone 25 mg PO DAILY 07/11/18 07/11/18 Warfarin [Coumadin] 5 mg PO AD 07/11/18 07/11/18 hydrALAZINE [HydrALAZINE] 25 mg PO Q8HR 07/11/18 07/11/18 Allergies Allergy/AdvReac Type Severity Reaction Status Date / Time gabapentin [From Neurontin] Allergy Itching Verified 11/04/18 16:25 ibuprofen Allergy Itching Verified 11/04/18 16:25 iodine Allergy Hives Verified 11/04/18 16:25 lisinopril Allergy facial Verified 11/04/18 16:25 swelling naproxen [From Naprosyn] Allergy Itching Verified 11/04/18 16:25 shellfish derived Allergy Hives Verified 11/04/18 16:25 Review of Systems: *See History of Present Illness for more detail Constitutional: Denies: fever, chills HEENT: Denies dysphagia/odynophagia Cardiovascular: Denies: chest pain Respiratory: Denies: dyspnea, cough, hemoptysis Gastrointestinal: Denies: abdominal pain, nausea, vomiting, diarrhea, constipation, hematemesis, melena, hematochezia Genitourinary: Denies: hematuria Musculoskeletal: Admits to lower showed edema. Denies: back pain, neck pain Neurological: Admits: Weakness. Denies: headache, lightheadedness/dizziness, numbness, paresthesias, difficulty with ambulation. Endocrine: Admits: fatigue All systems ED: reviewed and negative except as stated. Review of Systems: As Per HPI Past Medical History - Past Medical History Medical history: Reports: coronary artery disease, diabetes, hypertension, myocardial infarction, valvular heart disease Surgical history: Reports: heart valve replacement, hysterectomy Psychiatric history: Reports: depression - Social History Smoking Status: Current every day smoker Smokeless Tobacco Status: No Alcohol use: Reports: none Drug use: Reports: none Physical Exam NIH score is 1 Constitutional: No acute distress, [id number], engaged to conversation, speech is fluid, answers questions appropriately Neuro: GCS 15, CN II-XII are grossly intact, reflexes 2/4 in bilateral upper and lower extremities, strength 5/5 in bilateral upper and lower extremities Head: Atraumatic, normocephalic Eyes: Pupils equal, round and reactive to light, external ocular muscles intact, no scleral icterus, no conjunctival injection, no nystagmus. Mouth: There is a slight depression of the right corner of the mouth noted. Mucous membranes are moist, oropharynx is without edema, erythema, or exudate. No tongue swelling, lip swelling, perioral cyanosis, drooling, or trismus. Neck: Trachea midline without deviation. Anterior neck is supple without swelling, no lymphadenopathy or thyromegaly noted. Chest: Symmetric chest wall rise Heart: Patient with holosystolic mechanical murmur consistent with mechanical valve replacement. She is Cardiac rhythm and rate are regular with S1 and S2 , no S3 or S4 appreciated, no murmurs, rubs, or clicks. Lungs: Lungs are clear to auscultation bilaterally, without accessory muscle use or prolonged expiratory phase. No wheezes or stridor appreciated. Abdomen: Abdomen is flat, soft to palpation, normal bowel sounds, no evidence of bruising, surgical incisions, or abnormal mass. No abdominal bruit auscultated. Non-distended, non-rigid, no organomegaly, no ascites appreciated. No pulsatile mass, no tenderness or guarding to palpation, no rebound Extremities: 3+ pitting edema noted bilaterally. Pulses/motor/sensory intact in all 4 extremities. Psychiatric exam: Patient displays a normal affect and mood for the environment. No overt signs of hallucination. Integumentary: warm, dry, intact, normal color. No rash, cyanosis, diaphoresis, erythema, or pallor - General Limitations: no limitations General appearance: alert, in no apparent distress Course Course Narrative: CT scan had, basic labs, urinalysis, EKG/old EKG, chest x-ray, creatine kinase. I discussed my plan of care with the patient her brother bedside and both verbalized understanding and agreement Y course of action. - Reevaluation(s) Reevaluation #1: She noted to be anemic with hemoglobin of 7.2. She agrees to accept blood product if she needs transfusion. Reevaluation #2: Patient's INR is supratherapeutic at 7.8. She has no signs of active bleeding. I will give 5 mg by mouth vitamin K at this time Vital Signs Temperature 97.5 F L 11/04/18 12:18 Pulse Rate 56 11/04/18 12:18 Respiratory Rate 18 11/04/18 12:18 Blood Pressure 148/54 11/04/18 12:18 O2 Sat by Pulse Oximetry 100 11/04/18 12:18 Temperature 97.5 F L 11/04/18 12:18 Pulse Rate 61 11/04/18 14:30 Respiratory Rate 16 11/04/18 14:30 Blood Pressure 133/48 11/04/18 14:30 O2 Sat by Pulse Oximetry 100 11/04/18 14:30 Oxygen Delivery Oxygen Delivery Room Air Medical Decision Making - MDM Narrative Medical decision making narrative: The patients EKG, imaging, and laboratory results show urinalysis consistent with UTI, elevated creatinine suggesting acute kidney injury superimposed on chronic kidney disease, patient's hemoglobin is low at 7.2 consistent with her prior values, troponin elevation of 0.06 without acute ischemic change on EKG. Otherwise unremarkable workup. Evaluation results were discussed with the patient and their family member(s) at bedside. Patient was given time to ask questions and state concerns. The patient states that they have had significant relief of their symptoms with our management here in the ED. The patient will be admitted to the hospitalist medicine service for further evaluation and management of multiple falls in the setting of UTI and anemia. Patient was given a dose of Rocephin here in the ED and typed and screened with repeat troponin scheduled 3 hours after initial. The patient verbalizes their understanding and agreement with this plan and is hemodynamically stable at the time of admission. - Lab Data Lab results reviewed: Yes I reviewed the patient's lab results. Result diagrams: 11/04/18 13:49 11/04/18 13:49 Lab Results 11/04/18 11/04/18 11/04/18 Range/Units 13:49 13:49 14:00 WBC 9.5 (4.3-11.1) K/mcL RBC 2.64 L (3.82-4.97) M/mcL Hgb 7.2 L (11.5-15.4) g/dL Hct 23.8 L (35.3-44.9) % MCV 90.2 (83.0-100.0) fL MCH 27.3 L (28.0-33.3) pg MCHC 30.3 L (31.6-35.5) g/dL RDW 16.6 H (11.5-14.5) % Plt Count 287 (140-400) K/mcL MPV 11.8 (9.4-12.4) fL Immature Gran % 0.3 (0-4) % Seg Neutrophils % 68.7 % Lymphocytes % 21.5 % Monocytes % 7.3 % Eosinophils % 1.8 % Basophils % 0.4 % Neutrophils # 6.5 (1.6-8.9) K/mcL Lymphocytes # 2.0 (0.6-4.6) K/mcL Monocytes # 0.7 (0.0-1.3) K/mcL Eosinophils # 0.2 (0.0-0.6) K/mcL Basophils # 0.0 (0.0-0.2) K/mcL PT (9.4-12.1) Seconds INR APTT (26.0-36.0) Seconds Sodium 141 (136-145) mEq/L Potassium 3.9 (3.5-5.1) mEq/L Chloride 109 H (98-107) mEq/L Carbon Dioxide 23 (23-29) mEq/L BUN 30 H (8-23) mg/dL Creatinine 2.54 H (0.60-1.20) mg/dL Est GFR ( Amer) 23 L (> 60) Est GFR (Non-Af Amer) 19 L (> 60) BUN/Creatinine Ratio 12 (6-26) Glucose 176 H (70-105) mg/dL Calculated Osmolality 302 H (280-300) Calcium 8.8 (8.6-10.3) mg/dL Total Bilirubin 0.3 (0.3-1.0) mg/dL Direct Bilirubin 0.0 (0.0-0.2) mg/dL Indirect Bilirubin 0.3 (0.0-1.2) mg/dL AST 15 (13-39) Units/L ALT 9 (7-52) Units/L Alkaline Phosphatase 73 (34-104) Units/L Creatine Kinase 117 (30-223) Units/L Troponin I 0.06 H* (< 0.04) ng/mL Serum Total Protein 7.0 (6.4-8.9) g/dL Albumin 3.7 (3.5-5.7) g/dL Globulin 3.3 (2.4-3.5) g/dL Albumin/Globulin Ratio 1.1 (1.1-2.2) Urine Color Yellow (Yellow) Urine Clarity Turbid A (Clear) Urine pH 6.0 (5.0-8.0) pH Units Ur Specific [place] 1.019 (1.010-1.025) Urine Protein >=300 H (Neg-Trace) mg/dL Urine Glucose (UA) Normal (Normal) mg/dL Urine Ketones Negative (Negative) mg/dL Urine Blood Large H (Negative) Urine Nitrite Negative (Negative) Urine Bilirubin Small H (Negative) Urine Urobilinogen Normal (Normal) mg/dL Ur Leukocyte Esterase Large H (Negative) Urine Microscopic RBC TNTC H (0-3) per hpf Urine Microscopic WBC TNTC H (0-3) per hpf Ur Squamous Epith Cells Few (None-Few) per lpf Urine Bacteria Many H (None-Few) per hpf Hyaline Casts None Seen (None-Few) per lpf Ur Culture Indicated? YES A (NO) 11/04/18 Range/Units 15:41 WBC (4.3-11.1) K/mcL RBC (3.82-4.97) M/mcL Hgb (11.5-15.4) g/dL Hct (35.3-44.9) % MCV (83.0-100.0) fL MCH (28.0-33.3) pg MCHC (31.6-35.5) g/dL RDW (11.5-14.5) % Plt Count (140-400) K/mcL MPV (9.4-12.4) fL Immature Gran % (0-4) % Seg Neutrophils % % Lymphocytes % % Monocytes % % Eosinophils % % Basophils % % Neutrophils # (1.6-8.9) K/mcL Lymphocytes # (0.6-4.6) K/mcL Monocytes # (0.0-1.3) K/mcL Eosinophils # (0.0-0.6) K/mcL Basophils # (0.0-0.2) K/mcL PT 88.7 H* (9.4-12.1) Seconds INR 7.8 H* APTT 72.0 H (26.0-36.0) Seconds Sodium (136-145) mEq/L Potassium (3.5-5.1) mEq/L Chloride (98-107) mEq/L Carbon Dioxide (23-29) mEq/L BUN (8-23) mg/dL Creatinine (0.60-1.20) mg/dL Est GFR ( Amer) (> 60) Est GFR (Non-Af Amer) (> 60) BUN/Creatinine Ratio (6-26) Glucose (70-105) mg/dL Calculated Osmolality (280-300) Calcium (8.6-10.3) mg/dL Total Bilirubin (0.3-1.0) mg/dL Direct Bilirubin (0.0-0.2) mg/dL Indirect Bilirubin (0.0-1.2) mg/dL AST (13-39) Units/L ALT (7-52) Units/L Alkaline Phosphatase (34-104) Units/L Creatine Kinase (30-223) Units/L Troponin I (< 0.04) ng/mL Serum Total Protein (6.4-8.9) g/dL Albumin (3.5-5.7) g/dL Globulin (2.4-3.5) g/dL Albumin/Globulin Ratio (1.1-2.2) Urine Color (Yellow) Urine Clarity (Clear) Urine pH (5.0-8.0) pH Units Ur Specific [place] (1.010-1.025) Urine Protein (Neg-Trace) mg/dL Urine Glucose (UA) (Normal) mg/dL Urine Ketones (Negative) mg/dL Urine Blood (Negative) Urine Nitrite (Negative) Urine Bilirubin (Negative) Urine Urobilinogen (Normal) mg/dL Ur Leukocyte Esterase (Negative) Urine Microscopic RBC (0-3) per hpf Urine Microscopic WBC (0-3) per hpf Ur Squamous Epith Cells (None-Few) per lpf Urine Bacteria (None-Few) per hpf Hyaline Casts (None-Few) per lpf Ur Culture Indicated? (NO) - Radiology Data Radiology results reviewed: Yes I reviewed the patient's radiology results. Cervical Spine CT 11/04/18 12:29 IMPRESSION: No acute intracranial abnormality. No acute osseous injury of the cervical spine. D/ / 11/04/2018 13:54:55 Magdy Grey MD / christie Interpreting Provider: Magdy Grey MD Head CT 11/04/18 12:29 IMPRESSION: No acute intracranial abnormality. No acute osseous injury of the cervical spine. D/ / 11/04/2018 13:54:55 Magdy Grey MD / christie Interpreting Provider: Magdy Grey MD Chest X-Ray 11/04/18 12:30 IMPRESSION: No acute cardiopulmonary process. D/ / Timothy Taylor MD / Timothy Taylor MD Interpreting Provider: Timothy Taylor MD - EKG Data EKG #1 EKG attestation: Yes I reviewed and interpreted this EKG. EKG results narrative: The patients EKG shows a sinus rhythm with a first-degree heart block at a computer analyzed rate of 57 beats per minute, AK interval of 212 milliseconds, a QRS duration of 99 milliseconds, a QT/QTc interval of 460 / 448 milliseconds respectively. There are no significant ST segment elevations, depressions, pathologic Q waves, abnormal T-wave inversions, nor any other signs of acute ischemic change. This EKG that was performed today is generally consistent in morphology with prior EKG that was performed on 06/03/2018. NIH Stroke Scale - Level of Consciousness LOC: Alert - LOC Questions LOC Questions: Answers both correctly - LOC Commands LOC Commands: Performs both correctly - Best Gaze Best Gaze: Normal - Visual Visual: No visual loss - Facial Palsy Facial Palsy: Normal - Motor Legs Motor Leg-Left: Drift, does NOT hit bed Motor Leg-Right: Drift, does NOT hit bed - Limb Ataxia Limb Ataxia: Normal, No Ataxia - Sensory Sensory: Normal - Best Language Best Language: No aphasia - Dysarthria Dysarthria: Normal - Extinction and Inattention Extinction and Inattention: Normal - Pupil Exam Bilateral Pupil Reaction: Brisk
--- NOTE | 2018-11-04 13:56 | Emergency Department Note ---
Disposition Clinical Impression: Elevated serum creatinine, Troponin I above reference range, Generalized weakness, Chronic anemia, Urinary tract infection, Recurrent falls Disposition: Admitted As Inpatient Condition: Fair Referrals: Jet Burgos DO [Primary Care Provider] - Forms: ED Satisfaction Letter Time of Disposition: 15:15 General Adult HPI - General Chief complaint: ED Fall Stated complaint: multiple falls,fatigue Time Seen by Provider: 11/04/18 12:35 Source: patient, family Mode of arrival: ambulatory Limitations: no limitations Nursing Notes Reviewed: Yes Vital Signs Reviewed: Yes - History of Present Illness Location: lower extremity Pain Scale: 0 Associated symptoms: Reports: weakness Treatments Prior to Arrival: none - Related Data Home Medications Medication Instructions Recorded Confirmed Docusate Sodium [Colace] 100 mg PO BID PRN 10/29/14 07/11/18 Pregabalin [Lyrica] 75 mg PO BID 10/29/14 07/11/18 Simvastatin [Zocor] 40 mg PO HS 11/01/15 07/11/18 SitaGLIPtin [Januvia] 100 mg PO DAILY 11/01/15 07/11/18 Omeprazole [PriLOSEC] 40 mg PO DAILY 11/29/16 07/11/18 OxyCODONE Immed Rel [Roxicodone 10 10 mg PO TID PRN 11/29/16 07/11/18 MG] Ferrous Sulfate [Iron] 325 mg PO BID 07/11/18 07/11/18 Metoprolol [Lopressor] 25 mg PO BID 07/11/18 07/11/18 Spironolactone 25 mg PO DAILY 07/11/18 07/11/18 Warfarin [Coumadin] 5 mg PO AD 07/11/18 07/11/18 hydrALAZINE [HydrALAZINE] 25 mg PO Q8HR 07/11/18 07/11/18 Allergies Allergy/AdvReac Type Severity Reaction Status Date / Time gabapentin [From Neurontin] Allergy Itching Verified 07/11/18 11:37 ibuprofen Allergy Itching Verified 07/11/18 11:37 iodine Allergy Hives Verified 07/11/18 11:37 lisinopril Allergy facial Verified 07/11/18 11:37 swelling naproxen [From Naprosyn] Allergy Itching Verified 07/11/18 11:37 shellfish derived Allergy Hives Verified 07/11/18 11:37 Past Medical History - Past Medical History Medical history: Reports: coronary artery disease, diabetes, hypertension, myocardial infarction, valvular heart disease Surgical history: Reports: heart valve replacement, hysterectomy Psychiatric history: Reports: depression - Social History Smoking Status: Current every day smoker Smokeless Tobacco Status: No Alcohol use: Reports: none Drug use: Reports: none Physical Exam - General Limitations: no limitations General appearance: alert, in no apparent distress Course Vital Signs Temperature 97.5 F L 11/04/18 12:18 Pulse Rate 56 11/04/18 12:18 Respiratory Rate 18 11/04/18 12:18 Blood Pressure 148/54 11/04/18 12:18 O2 Sat by Pulse Oximetry 100 11/04/18 12:18 Temperature 97.5 F L 11/04/18 12:18 Pulse Rate 61 11/04/18 14:30 Respiratory Rate 16 11/04/18 14:30 Blood Pressure 133/48 11/04/18 14:30 O2 Sat by Pulse Oximetry 100 11/04/18 14:30 Oxygen Delivery Oxygen Delivery Room Air Medical Decision Making - Lab Data Result diagrams: 11/04/18 13:49 11/04/18 13:49 Lab Results 11/04/18 11/04/18 11/04/18 Range/Units 13:49 13:49 14:00 WBC 9.5 (4.3-11.1) K/mcL RBC 2.64 L (3.82-4.97) M/mcL Hgb 7.2 L (11.5-15.4) g/dL Hct 23.8 L (35.3-44.9) % MCV 90.2 (83.0-100.0) fL MCH 27.3 L (28.0-33.3) pg MCHC 30.3 L (31.6-35.5) g/dL RDW 16.6 H (11.5-14.5) % Plt Count 287 (140-400) K/mcL MPV 11.8 (9.4-12.4) fL Immature Gran % 0.3 (0-4) % Seg Neutrophils % 68.7 % Lymphocytes % 21.5 % Monocytes % 7.3 % Eosinophils % 1.8 % Basophils % 0.4 % Neutrophils # 6.5 (1.6-8.9) K/mcL Lymphocytes # 2.0 (0.6-4.6) K/mcL Monocytes # 0.7 (0.0-1.3) K/mcL Eosinophils # 0.2 (0.0-0.6) K/mcL Basophils # 0.0 (0.0-0.2) K/mcL Sodium 141 (136-145) mEq/L Potassium 3.9 (3.5-5.1) mEq/L Chloride 109 H (98-107) mEq/L Carbon Dioxide 23 (23-29) mEq/L BUN 30 H (8-23) mg/dL Creatinine 2.54 H (0.60-1.20) mg/dL Est GFR ( Amer) 23 L (> 60) Est GFR (Non-Af Amer) 19 L (> 60) BUN/Creatinine Ratio 12 (6-26) Glucose 176 H (70-105) mg/dL Calculated Osmolality 302 H (280-300) Calcium 8.8 (8.6-10.3) mg/dL Total Bilirubin 0.3 (0.3-1.0) mg/dL Direct Bilirubin 0.0 (0.0-0.2) mg/dL Indirect Bilirubin 0.3 (0.0-1.2) mg/dL AST 15 (13-39) Units/L ALT 9 (7-52) Units/L Alkaline Phosphatase 73 (34-104) Units/L Creatine Kinase 117 (30-223) Units/L Troponin I 0.06 H* (< 0.04) ng/mL Serum Total Protein 7.0 (6.4-8.9) g/dL Albumin 3.7 (3.5-5.7) g/dL Globulin 3.3 (2.4-3.5) g/dL Albumin/Globulin Ratio 1.1 (1.1-2.2) Urine Color Yellow (Yellow) Urine Clarity Turbid A (Clear) Urine pH 6.0 (5.0-8.0) pH Units Ur Specific Outlook 1.019 (1.010-1.025) Urine Protein >=300 H (Neg-Trace) mg/dL Urine Glucose (UA) Normal (Normal) mg/dL Urine Ketones Negative (Negative) mg/dL Urine Blood Large H (Negative) Urine Nitrite Negative (Negative) Urine Bilirubin Small H (Negative) Urine Urobilinogen Normal (Normal) mg/dL Ur Leukocyte Esterase Large H (Negative) Urine Microscopic RBC TNTC H (0-3) per hpf Urine Microscopic WBC TNTC H (0-3) per hpf Ur Squamous Epith Cells Few (None-Few) per lpf Urine Bacteria Many H (None-Few) per hpf Hyaline Casts None Seen (None-Few) per lpf Ur Culture Indicated? YES A (NO) Attestation Statement - Attestation Attestation: I have seen this patient with the resident physician, I have personally evaluated this patient. I had reviewed the chart and document dictation by the resident physician and aM in agreement with the information documented by the resident physician. Please see documentation by the resident physician for complete chart including past medical history, family medical history, review of systems, current history and physical and laboratory and imaging studies. I was present for all procedures, provided direct supervision for all procedures, was present for the entirety of all procedures and provided direct guidance during the procedures. Please see documentation by the resident physician for any procedures performed. I have reviewed all interpretations of EKGs, and reviewed all EKGs performed on patient's as well. I have also reviewed reports of imaging as provided by radiology. Patient presents emergency Department with chief complaint of 3 weeks of progressively increasing falls. She states that for a couple months she has had increased lower extremity edema seems to be worse in the last couple of weeks she states that she continues to fall at home with increased frequency over the last 3 weeks but she does not really know why she states she is not passing out she states that she remembers all the falls she thinks that her legs are weak. She denies noticing any unilateral numbness or weakness. She states that her brother came over today because she talked to him on the phone and he thought that her speech sounded funny so he came to her house said that she was slurring her words and saw how swollen her legs were so brought her to the emergency dep artment in no she did not really want to come. She is denying any current pain she has not experienced any pain over last 3 weeks she denies headache neck pain chest pain shortness of breath. She denies fevers or chills. She denies cough or sputum production she denies abdominal pain nausea vomiting. She denies any urinary changes or decreased urine output or dysuria hematuria. She denies any black or bloody stool. She states that she does have bilateral lower extremity swelling which has worsened and that both of her legs do feel weak. The patient denies any other acute concerns. On physical examination she is alert oriented, with no slurring of her speech, cranial nerves appear to be grossly intact, however with smile there is question just slight right-sided facial droop compared to the left with slight loss of the nasolabial fold on the right, with slight decrease in upturn of the lips on the right was smiling. No tongue deviation. Full nontender range of motion of the neck. No meningeal sign. No obvious thyromegaly or carotid bruits or JVD. Lungs are clear heart is regular bradycardic with a 3/6 systolic murmur consistent with her prior valve replacement. The abdomen is soft and nontender. There is 3+ bilateral lower extremity edema to the just above the knees bilaterally. No unilateral swelling no palpable cord no calf tenderness no Homans sign, normal distal pulses. Normal temperature of the skin. There is no unilateral weakness noted of the arms or legs, 4+ out of 5 strength bilateral lower extremities noted with normal reflexes, no evidence of cauda equina syndrome intact sensation. Skin is warm and dry without rash or petechiae, slightly pale in appearance. Workup was initiated for recurrent falls, and possible strokelike symptoms. She is on Coumadin, head CT was ordered for falls and for evaluation of stroke. Basic laboratory studies were ordered. Patient is well outside the window of any potential TPA, is also already on Coumadin, and has had symptoms for weeks, and currently has an NIH stroke scale of 0 or 1, for slight right-sided facial abnormality. Head CT showed no acute findings. Chest x-ray showed no acute findings Images were interpreted by radiology. EKG was a sinus sinus bradycardic rhythm, no acute change from prior EKG CBC demonstrates a hemoglobin of 7.2, the patient seems to at baseline have a hemoglobin of about 7.5 does appear she has received transfusions in the past, she has been as low as 5.5 but typical baseline does appear to be in the 7 range although last one was 9.1 but that was after she had received a transfusion from 5.5 Renal panel shows slight increase in creatinine to 2.54, when compared to previous if he review her trend, she has been on a slow increase in relation to her creatinine for the last year and a half, most recent were 2.0 and 2.3. The patient was unable to void, and a straight catheter urine was obtained, which demonstrated definitive evidence for a UTI secondary to her increasing creatinine, along with her being unable to void, a King catheter will also be placed, she will be given IV antibiotics for UTI Troponin was borderline at 0.06 the patient is without chest pain or shortness of breath. She has had no palpitations her EKG shows no acute changes and she does have an uptrending creatinine this may be related to this but will need fur ther monitoring, secondary to her hemoglobin that is also chronically low, and the patient being on Coumadin, we will not give the patient aspirin will add coags to her blood work and a type and screen. Patient will be admitted to the hospital for further evaluation and management of generalized weakness acute on chronic renal insufficiency urinary tract infection borderline troponin elevation chronic anemia.
[2018-11-04 14:12] LABS: Basophils % 0.4 %; Eosinophils # 0.2 K/mcL (0.0-0.6); Eosinophils % 1.8 %; Hematocrit 23.8 % (35.3-44.9); Hemoglobin 7.2 g/dL (11.5-15.4); Immature Granulocytes % 0.3 % (0-4); Lymphocytes % 21.5 %; Mean Corpuscular HGB Conc 30.3 g/dL (31.6-35.5); Mean Corpuscular Hemoglobin 27.3 pg (28.0-33.3); Mean Corpuscular Volume 90.2 fL (83.0-100.0); Mean Platelet Volume 11.8 fL (9.4-12.4); Monocytes # 0.7 K/mcL (0.0-1.3); Monocytes % 7.3 %; Neutrophils # 6.5 K/mcL (1.6-8.9); Platelet Count 287 K/mcL (140-400); Red Blood Count 2.64 M/mcL (3.82-4.97); Red Cell Distribution Width 16.6 % (11.5-14.5); Segmented Neutrophils % 68.7 %; White Blood Count 9.5 K/mcL (4.3-11.1)
[2018-11-04 14:34] LABS: Troponin I 0.06 ng/mL (< 0.04)
[2018-11-04 14:34] LABS: Bacteria,Urine Many per hpf (None-Few); Bilirubin,Urine Small (Negative); Blood,Urine Large (Negative); Clarity,Urine Turbid (Clear); Color,Urine Yellow (Yellow); Glucose,Urine (UA) Normal (Normal); Hyaline Casts,Urine None Seen per lpf (None-Few); Ketones,Urine Negative (Negative); Leukocyte Esterase,Urine Large (Negative); Nitrite,Urine Negative (Negative); Protein,Urine >=300 mg/dL (Neg-Trace); RBC,Urine TNTC per hpf (0-3); Specific Gravity,Urine 1.019 (1.010-1.025); Squamous Epithelial Cell,Urine Few per lpf (None-Few); Urobilinogen,Urine Normal (Normal); WBC,Urine TNTC per hpf (0-3)
[2018-11-04 14:49] LABS: Albumin 3.7 g/dL (3.5-5.7); Albumin/Globulin Ratio 1.1 (1.1-2.2); Bilirubin,Indirect 0.3 mg/dL (0.0-1.2); Bilirubin,Total 0.3 mg/dL (0.3-1.0); Calcium 8.8 mg/dL (8.6-10.3); Globulin 3.3 g/dL (2.4-3.5); Potassium 3.9 mEq/L (3.5-5.1)
[2018-11-04] MEDS ORDERED: cefTRIAXone 1,000 MG in Water for inj. (sterile) 10 ML IVP ONE (15:10)
--- NOTE | 2018-11-04 16:10 | Internal Med History&Physical ---
<Garfield Douglas - Last Filed: 11/04/18 18:24> Date of Encounter: 11/04/18 Time of Encounter: 15:38 Internal Medicine - H&P: HPI Chief complaint: Chest Pain Admitted From: Home Plans for Post Hospital Care: Home History of present illness: Ms. Sanchez is a 68 year old female who presented to the ED due to a fall. Patient states that she has fallen almost daily for the past month. The patient states that she does not recall what happened. The story according to the brother was that he was talking on the phone with her and he noticed she had shallow breathing, was speaking slow and slurring some of her words. He then called the cloth tester quality and when they arrived at her house they found her down in the bathroom. She states that she does not recall talking on the phone, but does say that she had trouble getting on the toilet. Patient states that her legs have been feeling heavy for the last month and she believes that is the source of her falling. Patient is not having any numbness tingling. Patient admits to fatigue, fluctuating weight, SOB, peripheral edema bilaterally, increase in urinary frequency. She denies fever, chills, wheezing, coughing/sputum production, palpitations, orthopnea, dysuria, hematuria, abdominal pain, nausea/vomiting. Falls aren't mechanical in nature. In the ED - Patient was evaluated for a fall. - Vitals: BP: 133/48, HR: 61, RR: 16, Temp: 97.5, SaO2: 100 - Labs: - Hemoglobin: 7.2 - INR: 7.8, PT: 80 - BUN: 30, Cr: 2.54 - Troponin: 0.06 - GFR: 23, Urine Protein: >300, RBCs, Leukocyte esterase, + Bacteria. - Imaging - EKG: Sinus bradycardia with a rate of 57, no changes from 06/03/18. - Head/Spine CT: Showed no acute findings. - Chest X-ray: No acute cardiopulmonary process, Normal heart size. - Management: - Supratheraputic INR: 5 mg Vitamin K PO. - UTI: Ceftriaxone Sodium 1,000 mg. The patient was examined at bedside and was resting comfortably in bed. Patients history was obtained with the help of her brother. Patient will be admitted for further evaluation. PMH: DM, CKD, HTN, MGUS PSH: Heart valve replacement, Hysterectomy SH: patient is retired from multiple jobs, she admits to a 50 year smoking history of 1/2 per day. Denies EtOH/Ellicit drugs FH: Father from ID/Stroke 63, Mom from colon cancer 67. Past Med Surg Social Fam HX - Past Medical History Medical history: coronary artery disease, diabetes, hypertension, myocardial infarction, valvular heart disease Additional medical history: blurry vision Psychiatric history: depression - Past Surgical History Surgical History: heart valve replacement, hysterectomy Additional surgical history: mechanial mitral valve - Social History Smoking Status: Current every day smoker Smokeless Tobacco Status: No Alcohol use: none Drug use: none - Family History Mother Living Status: Hx Family Cardiac Disorders: Yes Father Living Status: Hx Family Cardiac Disorders: Yes (stroke) Internal Medicine - H&P: Meds Docusate Sodium [Colace] 100 mg PO BID PRN 10/29/14 [History] Simvastatin [Zocor] 40 mg PO HS 11/01/15 [History] Omeprazole [PriLOSEC] 40 mg PO DAILY 11/29/16 [History] OxyCODONE Immed Rel [Roxicodone 10 MG] 10 mg PO TID PRN 11/29/16 [History] Metoprolol [Lopressor] 25 mg PO BID 07/11/18 [History] hydrALAZINE [HydrALAZINE] 25 mg PO Q8HR 07/11/18 [History] Amlodipine Besylate 5 mg PO BID 11/04/18 [History] Ferrous Sulfate [Iron] 325 mg PO BID 11/04/18 [History] Furosemide [Lasix] 40 - 80 mg PO DAILY PRN 11/04/18 [History] Pregabalin [Lyrica] 75 mg PO BID 11/04/18 [History] SitaGLIPtin [Januvia] 100 mg PO DAILY 11/04/18 [History] Warfarin Sodium 2.5 mg PO TUFR 11/04/18 [History] Warfarin Sodium 3.75 mg PO SUMOWETHSA 11/04/18 [History] Allergy/AdvReac Type Severity Reaction Status Date / Time gabapentin [From Neurontin] Allergy Itching Verified 11/04/18 16:25 ibuprofen Allergy Itching Verified 11/04/18 16:25 iodine Allergy Hives Verified 11/04/18 16:25 lisinopril Allergy facial Verified 11/04/18 16:25 swelling naproxen [From Naprosyn] Allergy Itching Verified 11/04/18 16:25 shellfish derived Allergy Hives Verified 11/04/18 16:25 All Systems PM: A 10-system review of systems was performed and is negative for pertinent findings except as documented above in the HPI. Review of systems: as above - Constitutional Constitutional: as per HPI, fatigue, lethargy, weakness, weight gain, weight loss, no excessive sweating - EENT Nose, mouth and throat: no nasal congestion, no nasal discharge, no post-nasal drip, no sinus pain, no sore throat - Cardiovascular Cardiovascular ROS IM: edema, no chest pain, no diaphoresis, no orthopnea - Respiratory Respiratory: cough, dyspnea on exertion, no wheezing - Gastrointestinal Gastrointestinal: no abdominal pain, no diarrhea, no hematemesis, no hematochezia, no melena, no nausea, no vomiting - Genitourinary Genitourinary: urinary frequency, no difficulty urinating, no dysuria, no hematuria, no urinary incontinence - Musculoskeletal Musculoskeletal ROS IM: joint swelling, muscle weakness - Neurological Neurological ROS: as per HPI, abnormal speech, confusion, tremor(s), weakness, no headache(s), no vertigo - Psychiatric Psychiatric: confusion, no memory loss - Constitutional Vitals: Temp Pulse Resp BP Pulse Ox 97.5 F L 61 16 133/48 100 11/04/18 12:18 11/04/18 14:30 11/04/18 14:30 11/04/18 14:30 11/04/18 14:30 General appearance: Present: cooperative, A&O X 3, obese Exam: as above - Head Head exam: Present: atraumatic, normal inspection, normocephalic - Eye Eye exam: Present: PERRL. Absent: nystagmus, scleral icterus Additional comments: Trouble with left lateral downward gaze. - ENT ENT exam: Present: mucous membranes moist, normal exam - Respiratory Respiratory exam: Present: CTAB. Absent: accessory muscle use, chest wall tenderness, decreased breath sounds, rales, rhonchi, stridor, wheezes - Cardiovascular Cardiovascular exam: Present: bradycardia, clicks, +S1, +S2, systolic murmur. Absent: JVD, RRR - GI/Abdominal GI/Abdominal exam: Present: normal bowel sounds, soft. Absent: diminished bowel sounds, distended, mass, rebound, rigid, splenomegaly, tenderness - Extremities Exam Extremities exam: Present: joint swelling, pedal edema. Absent: tenderness, warm, radial pulses palpable and symmetrical - Expanded Lower Extremities Exam Lower Leg exam: Present: swelling. Absent: tenderness Ankle exam: Present: swelling. Absent: normal inspection, tenderness Foot/Toe exam: Present: swelling. Absent: tenderness - Back Exam Back exam: Present: normal inspection - Neurological Exam Neurological exam: Present: oriented X3, speech deficit (Slow speech.). Absent: alert, altered, CN II-XII intact (CN 2-12 intact, except for left lateral gaze, patient was poorly coopperative ), facial droop - Psychiatric Psychiatric exam: Present: agitated, flat affect Internal Med - H&P Results - Labs CBC & Chem 7: 11/04/18 13:49 11/04/18 13:49 Labs: Short CBC 11/04/18 Range/Units 13:49 WBC 9.5 (4.3-11.1) K/mcL Hgb 7.2 L (11.5-15.4) g/dL Hct 23.8 L (35.3-44.9) % Plt Count 287 (140-400) K/mcL Neutrophils # 6.5 (1.6-8.9) K/mcL BMP 11/04/18 13:49 Sodium 141 Potassium 3.9 Chloride 109 H Carbon Dioxide 23 BUN 30 H Creatinine 2.54 H Glucose 176 H Calcium 8.8 Cardiac Enzymes 11/04/18 Range/Units 13:49 Troponin I 0.06 H* (< 0.04) ng/mL Liver Function 11/04/18 Range/Units 13:49 Total Bilirubin 0.3 (0.3-1.0) mg/dL Direct Bilirubin 0.0 (0.0-0.2) mg/dL AST 15 (13-39) Units/L ALT 9 (7-52) Units/L Alkaline Phosphatase 73 (34-104) Units/L Albumin 3.7 (3.5-5.7) g/dL Urine 11/04/18 Range/Units 14:00 Urine Color Yellow (Yellow) Urine Clarity Turbid A (Clear) Urine pH 6.0 (5.0-8.0) pH Units Ur Specific Taylor 1.019 (1.010-1.025) Urine Protein >=300 H (Neg-Trace) mg/dL Urine Glucose (UA) Normal (Normal) mg/dL - Impressions ITS Impressions Cervical Spine CT 11/04/18 12:29 IMPRESSION: No acute intracranial abnormality. No acute osseous injury of the cervical spine. D/ / 11/04/2018 13:54:55 Magdy Grey MD / christie Interpreting Provider: Magdy Grey MD Head CT 11/04/18 12:29 IMPRESSION: No acute intracranial abnormality. No acute osseous injury of the cervical spine. D/ / 11/04/2018 13:54:55 Magdy Grey MD / christie Interpreting Provider: Magdy Grey MD Chest X-Ray 11/04/18 12:30 IMPRESSION: No acute cardiopulmonary process. D/ / Timothy Taylor MD / Timothy Taylor MD Interpreting Provider: Timothy Taylor MD - Assessment and Plan (1) Falls Current Visit: Yes Status: Acute Assessment and plan: -Patient has a frequent history of falls, she denies any head trauma, she also is a poor historian of what caused the fall. - Per the brother was that he was talking on the phone with her and he noticed she had shallow breathing, was speaking slow and slurring some of her words. He then called the [employer] and when they arrived at her house they found her down in the bathroom. She states that she does not recall talking on the phone, but does say that she had trouble getting on the toilet. Patient states that her legs have been feeling heavy for the last month and she believes that is the source of her falling - Patient admits to fatigue, fluctuating weight, SOB, peripheral edema bilaterally. Denies fever, chills, wheezing, coughing/sputum production, palpitations, orthopnea - Fall possibly may be related to possible UTI vs Stroke. ED: - Patient was evaluated for a fall. - Vitals: BP: 133/48, HR: 61, RR: 16, Temp: 97.5, SaO2: 100 - Labs: - Hemoglobin: 7.2 - INR: 7.8, PT: 80 - BUN: 30, Cr: 2.54 - Troponin: 0.06 - GFR: 23, Urine Protein: >300, RBCs, Leukocyte esterase, + Bacteria. - Imaging - EKG: Sinus bradycardia with a rate of 57, no changes from 06/03/18. - Head/Spine CT: Showed no acute findings. - Chest X-ray: No acute cardiopulmonary process, Normal heart size. - Management: - Supratheraputic INR: 5 mg Vitamin K PO. - UTI: Ceftriaxone Sodium 1,000 mg. Elevated troponins due to demand ischemia paired with inability to eliminate troponins from CKD. Will continue to monitor for ischemic processes and will trend troponins. Plan: - Obtain MRI to rule out neurologic processes, given her clinical symptoms. - Continue Ceftriaxone for UTI, monitor cultures - Continue to monitor Supratheraputic INR, monitor for bleeds - Consulted PT/OT Qualifiers: Encounter type: initial encounter Qualified Code(s): W19.XXXA - Unspecified fall, initial encounter (2) Stroke Current Visit: Yes Status: Suspected Assessment and plan: - Same as above for Falls - Head/Spine CT: Showed no acute findings. - Chest X-ray: No acute cardiopulmonary process, Normal heart size. - Obtain MRI Qualifiers: Qualified Code(s): I63.9 - Cerebral infarction, unspecified (3) Urinary tract infection Current Visit: Yes Status: Acute Assessment and plan: - Same as above for Falls - WBC: 9.5, BP: 133/48, HR: 61, RR: 16, Temp: 97.5, SaO2: 100 - Continue Ceftriaxone, Urine cultures pending. - Previous cultures grew E. Coli that were sensitive to ceftriaxone Qualifiers: Qualified Code(s): N39.0 - Urinary tract infection, site not specified (4) Anemia Current Visit: No Status: Chronic Assessment and plan: - Hemoglobin: 7.2, appears to be at her baseline. likely secondary to CKD. - No signs of active bleed - Agreed to blood transfusion if necessary - Well monitor and transfuse if she drops below 7.0 or shows signs of bleeding. Qualifiers: Anemia type: iron deficiency Iron deficiency anemia type: chronic blood loss Qualified Code(s): D50.0 - Iron deficiency anemia secondary to blood loss (chronic) (5) Supratherapeutic international normalized ratio (INR) Current Visit: No Status: Acute Assessment and plan: - INR: 7.8, PT: 80 - ED gave 5 mg Vitamin K PO (6) Generalized weakness Current Visit: Yes Status: Acute Assessment and plan: - Possibly secondary to anemia, or UTI (7) CKD (chronic kidney disease) Current Visit: Yes Status: Acute Assessment and plan: - GFR: 23, Urine Protein: >300, RBCs, Leukocyte esterase, + Bacteria. - Creatinine: 2.54, this is at her baseline, - Continue strict monitoring, avoid nephrotoxic drugs. Qualifiers: Qualified Code(s): N18.4 - Chronic kidney disease, stage 4 (severe) (8) DVT prophylaxis Current Visit: No Status: Acute Assessment and plan: - Held due to her supratherapeutic INR. - Will continue to watch for bleeding. (9) Monoclonal gammopathy of unknown significance Current Visit: No Status: Chronic Assessment and plan: Follow-up outpatient. - Time Spent With Patient Total time spent is greater than 50% in coordination of care (as documented) at patient's floor/unit and/or counseling patient: <Fox Childress - Last Filed: 11/04/18 19:28> Date of Encounter: 11/04/18 Internal Medicine - H&P: HPI History of present illness: Ms. Sanchez is a 68 year old female All Systems PM: A 10-system review of systems was performed and is negative for pertinent findings except as documented above in the HPI. - Constitutional Vitals: Temp Pulse Resp BP Pulse Ox 98.3 F 57 12 159/50 100 11/04/18 17:20 11/04/18 17:20 11/04/18 17:20 11/04/18 17:20 11/04/18 17:20 Internal Med - H&P Results - Labs CBC & Chem 7: 11/04/18 13:49 11/04/18 13:49 Labs: Short CBC 11/04/18 Range/Units 13:49 WBC 9.5 (4.3-11.1) K/mcL Hgb 7.2 L (11.5-15.4) g/dL Hct 23.8 L (35.3-44.9) % Plt Count 287 (140-400) K/mcL Neutrophils # 6.5 (1.6-8.9) K/mcL BMP 11/04/18 13:49 Sodium 141 Potassium 3.9 Chloride 109 H Carbon Dioxide 23 BUN 30 H Creatinine 2.54 H Glucose 176 H Calcium 8.8 Cardiac Enzymes 11/04/18 11/04/18 Range/Units 13:49 15:41 Troponin I 0.06 H* 0.07 H* (< 0.04) ng/mL Liver Function 11/04/18 Range/Units 13:49 Total Bilirubin 0.3 (0.3-1.0) mg/dL Direct Bilirubin 0.0 (0.0-0.2) mg/dL AST 15 (13-39) Units/L ALT 9 (7-52) Units/L Alkaline Phosphatase 73 (34-104) Units/L Albumin 3.7 (3.5-5.7) g/dL Urine 11/04/18 Range/Units 14:00 Urine Color Yellow (Yellow) Urine Clarity Turbid A (Clear) Urine pH 6.0 (5.0-8.0) pH Units Ur Specific Taylor 1.019 (1.010-1.025) Urine Protein >=300 H (Neg-Trace) mg/dL Urine Glucose (UA) Normal (Normal) mg/dL - Impressions ITS Impressions Cervical Spine CT 11/04/18 12:29 IMPRESSION: No acute intracranial abnormality. No acute osseous injury of the cervical spine. D/ / 11/04/2018 13:54:55 Magdy Grey MD / christie Interpreting Provider: Magdy Grey MD Head CT 11/04/18 12:29 IMPRESSION: No acute intracranial abnormality. No acute osseous injury of the cervical spine. D/ / 11/04/2018 13:54:55 Magdy Grey MD / christie Interpreting Provider: Magdy Grey MD Chest X-Ray 11/04/18 12:30 IMPRESSION: No acute cardiopulmonary process. D/ / Timothy Taylor MD / Timothy Taylor MD Interpreting Provider: Timothy Taylor MD - Assessment and Plan (1) Urinary tract infection Current Visit: Yes Status: Acute Qualifiers: Urinary tract infection type: acute cystitis Hematuria presence: with hematuria Qualified Code(s): N30.01 - Acute cystitis with hematuria (2) Stroke Current Visit: Yes Status: Suspected Qualifiers: CVA mechanism: embolism Precerebral and cerebral artery: unspecified precerebral artery Qualified Code(s): I63.10 - Cerebral infarction due to embolism of unspecified precerebral artery (3) CHF (congestive heart failure) Current Visit: No Status: Chronic Qualifiers: Heart failure type: diastolic Heart failure chronicity: chronic Qualified Code(s): I50.32 - Chronic diastolic (congestive) heart failure (4) CKD (chronic kidney disease) Current Visit: Yes Status: Acute Qualifiers: Chronic kidney disease stage: stage 4 (severe) Qualified Code(s): N18.4 - Chronic kidney disease, stage 4 (severe) (5) Anemia Current Visit: No Status: Suspected Qualifiers: Anemia type: iron deficiency Iron deficiency anemia type: chronic blood loss Qualified Code(s): D50.0 - Iron deficiency anemia secondary to blood loss (chronic) (6) Supratherapeutic international normalized ratio (INR) Current Visit: No Status: Acute (7) Mechanical heart valve present Current Visit: No Status: Chronic (8) Tobacco abuse Current Visit: No Status: Chronic - Time Spent With Patient Total time spent is greater than 50% in coordination of care (as documented) at patient's floor/unit and/or counseling patient: - Attending Attestation The history, physical exam, and medical decision making was performed by the medical student either while I was physically present and actively involved or I personally re-performed the exam and medical decision making. I have verified the accuracy of the medical student's documentation with regards to the history, physical exam findings, and medical decision making on 11/04/18. Ms Sanchez presented to ED after fall at home. She was on the phone with her brother when she had slurred speech. He found her on the floor. There was concern for R facial weakness. In ED she was evaluated and found to have anemia - chronic as well as UTI. Exam: ALert. Comfortable. NC. EOMI. Neck supple. Heart reg - not tachy. LUngs diminished. ABd soft and nontender. Edema present. No rash. MOves all extremities. No weakness. Pulses palpable. I/P 1. Weakness - ? CVA. Check MRI. 2. UTI - on Rocephin 3. REcurrent falls - PT/OT. Further assessment and plan as above.
[2018-11-04 16:30] LABS: INR 7.8; Prothrombin Time 88.7 Seconds (9.4-12.1)
[2018-11-04] MEDS ORDERED: *HR* Phytonadione 5 MG TABLET PO ONE (16:32)
[2018-11-04] MEDS ORDERED: Ondansetron 4 MG/2 ML VIAL IVP PRN (16:50)
[2018-11-04] MEDS ORDERED: Naloxone 0.4 MG/ML INJ IVP PRN (16:50)
[2018-11-04] MEDS ORDERED: Acetaminophen 325 MG TABLET PO PRN (16:50)
[2018-11-04 20:59] LABS: Hematocrit 21.1 % (35.3-44.9); Hemoglobin 6.4 g/dL (11.5-15.4)
[2018-11-05] MEDS ORDERED: *HR* OxyCODONE Immed Rel 5 MG TABLET PO ONE (01:22)
[2018-11-05] MEDS ORDERED: 0.9 % Sodium Chloride 250 ML ONE (03:53)
[2018-11-05 07:26] VITALS: BP 161/62
--- NOTE | 2018-11-05 07:35 | Electrocardiograph Report ---
[facility] Test Date: 2018-11-04 Pat Name: Shelley Sanchez Department: EXAM11 Room: 2NE21 Gender: F Bolt Loader: : 1950 Requested By: Bladimir Winter Order Number: [id number] Reading MD: Umang Montelongo Measurements Intervals Soso Rate: 57 P: -43 AZ: 212 QRS: 33 QRSD: 99 T: 60 QT: 460 QTc: 448 Interpretive Statements Sinus rhythm Borderline prolonged [place] interval Nonspecific T abnormalities, lateral leads Borderline ST elevation, anterolateral leads Electronically Signed On 11-05-2018 7:18:37 EDT by Umang Montelongo
[2018-11-05 08:20] LABS: Hematocrit 28.2 % (35.3-44.9); Hemoglobin 9.2 g/dL (11.5-15.4); Mean Corpuscular HGB Conc 32.6 g/dL (31.6-35.5); Mean Corpuscular Hemoglobin 28.9 pg (28.0-33.3); Mean Corpuscular Volume 88.7 fL (83.0-100.0); Mean Platelet Volume 12.4 fL (9.4-12.4); Platelet Count 234 K/mcL (140-400); Red Blood Count 3.18 M/mcL (3.82-4.97); White Blood Count 8.1 K/mcL (4.3-11.1)
[2018-11-05 08:27] LABS: Prothrombin Time 22.5 Seconds (9.4-12.1)
[2018-11-05 08:38] LABS: Albumin 3.2 g/dL (3.5-5.7); Bilirubin,Total 0.4 mg/dL (0.3-1.0); Calcium 8.5 mg/dL (8.6-10.3); Globulin 3.2 g/dL (2.4-3.5); Potassium 3.9 mEq/L (3.5-5.1); Total Protein 6.4 g/dL (6.4-8.9)
[2018-11-05] MEDS ORDERED: cefTRIAXone 1,000 MG in Water for inj. (sterile) 10 ML IVP SCH (09:00)
[2018-11-05] MEDS ORDERED: Pregabalin 75 MG CAPSULE PO SCH (09:00)
--- NOTE | 2018-11-05 09:24 | Gastroenterology Consult Note ---
<Mitchel Omalley - Last Filed: 11/05/18 11:14> Date of Encounter: 11/05/18 Time of Encounter: 09:24 - Assessment and plan (1) Anemia Status: Acute Assessment and plan: Patient admitted with the chief complaint of fall and evaluation for that She was also found to be anemic on presentation, on review of records her hemoglobin has not been above 9 since April 2016 She was recently admitted for similar complaints in May of this year, colonoscopy and endoscopy did not identify bleeding stigmata Repeat endoscopy was not deemed to be of benefit this admission, instead iron studies, B12/folate, outpatient capsule endoscopy were recommended Patient agreed with the idea of not performing endoscopy this admission, stated she wanted to leave She did apparently thereafter after conversation with her hospitalist leave AGAINST MEDICAL ADVICE Qualifiers: Anemia type: unspecified type Qualified Code(s): D64.9 - Anemia, unspecified - Time Spent With Patient Total time spent is greater than 50% in coordination of care (as documented) at patient's floor/unit and/or counseling patient: GI History of Present Illness - Data of Consult Patient: known to practice within the last 3 years Consult date: 11/05/18 Requesting Physician: Balwinder Suarez - Consult Narrative Reason for consult: anemia History of present illness: Ms. Sanchez is a 68 year old female with a past medical history of diabetes, see daily, hypertension, MGUS, coronary artery disease. She was admitted for the chief complaint of fall, and multiple previous falls over the last month. On admission her hemoglobin was found to be 7.2 and her INR was found to be 7.8. However she did not report any signs of bleeding. Evaluation for fall was completed including CT head, brain MRI, chest x-ray, all of which were negative for acute abnormality. She was transfused with packed red blood cells and her hemoglobin improved to 9.2. Gastroenterology consultation was requested to evaluate for possible GI bleed etiology of anemia. On review of records the patient was previously admitted here for similar concerns in May of this year. During that admission colonoscopy and endoscopy were performed which were both negative for acute abnormality. On discussion with Dr. Villalba there is not thought to be benefit from repeating endoscopy during this admission and to instead proceed with transfusion as necessary, iron studies, B12 and folate studies, and anticipation of outpatient capsule endoscopy. On my evaluation of the patient she did confirm the above history and I did inform her of our plan of care. She stated she agreed with not performing endoscopy during this admission and stated she wanted to leave today. I informed her that it was up her hospitalist to coordinate her plan of care in terms of discharge. Past Med Surg Social Fam HX - Past Medical History Medical history: coronary artery disease, diabetes, hypertension, myocardial infarction, valvular heart disease Additional medical history: blurry vision Psychiatric history: depression - Past Surgical History Surgical History: heart valve replacement, hysterectomy Additional surgical history: mechanial mitral valve - Social History Smoking Status: Current every day smoker Smokeless Tobacco Status: No Alcohol use: none Drug use: none - Family History Mother Living Status: Hx Family Cardiac Disorders: Yes Father Living Status: Hx Family Cardiac Disorders: Yes (stroke) All systems PM: reviewed and no additional remarkable complaints except as stated - Constitutional Vitals: Temp Pulse Resp BP Pulse Ox 97.6 F 64 16 161/62 98 11/05/18 07:24 11/05/18 07:24 11/05/18 07:24 11/05/18 07:24 11/05/18 07:24 General appearance: Present: mild distress, A&O X 3 Exam: Patient is anxious and stating she wants to leave - Eye Eye exam: Present: EOMI, PERRL - Respiratory Respiratory exam: Present: rales - Cardiovascular Cardiovascular exam: Present: diastolic murmur, RRR, systolic murmur Additional comments: Holosystolic and diastolic murmur consistent with valve replacement - GI/Abdominal GI/Abdominal exam: Present: normal bowel sounds, soft, no peritoneal signs. Absent: distended, guarding, tenderness - Extremities Exam Extremities exam: Present: pedal edema (2+ bilateral pitting edema), radial pulses palpable and symmetrical - Skin Skin exam: Present: dry, warm Results - Labs CBC & Chem 7: 11/05/18 07:41 11/05/18 07:41 Labs: Last Result 11/04/18 11/05/18 20:34 07:41 Calcium 8.5 L Iron 122 % Saturation 67 H Transferrin 131 L Ferritin 41 Troponin I 0.05 H* Entire Visit 11/05/18 11/05/18 11/05/18 07:41 07:41 07:41 Hgb 9.2 L D Hct 28.2 L PT 22.5 H D Ferritin 41 Total Bilirubin 0.4 AST 14 ALT 8 - ABG ABG results: PT/INR, D-dimer PT 22.5 Seconds (9.4-12.1) H D 11/05/18 07:41 - Impressions Impressions Cervical Spine CT 11/04/18 12:29 IMPRESSION: No acute intracranial abnormality. No acute osseous injury of the cervical spine. D/ / 11/04/2018 13:54:55 Magdy Grey MD / christie Interpreting Provider: Magdy Grey MD Head CT 11/04/18 12:29 IMPRESSION: No acute intracranial abnormality. No acute osseous injury of the cervical spine. D/ / 11/04/2018 13:54:55 Magdy Grey MD / christie Interpreting Provider: Magdy Grey MD Chest X-Ray 11/04/18 12:30 IMPRESSION: No acute cardiopulmonary process. D/ / Timothy Taylor MD / Timothy Taylor MD Interpreting Provider: Timothy Taylor MD Brain MRI 11/04/18 17:06 IMPRESSION: No acute infarct. D/ / Tani Tellez MD / Tani Tellez MD Interpreting Provider: Tani Tellez MD Consult Discharge Plan - Plan Instructions: Amoxicillin (By mouth), Urinary Tract Infection in Women (DC), Anemia (GEN) Referrals: Jet Burgos DO [Primary Care Provider] - Prescriptions: Amoxicillin/Clavulanate [Augmentin] 500 mg PO BIDWM #12 tablet <Boby Villalba - Last Filed: 11/05/18 17:54> Date of Encounter: 11/05/18 Time of Encounter: 14:00 - Time Spent With Patient Total time spent is greater than 50% in coordination of care (as documented) at patient's floor/unit and/or counseling patient: GI History of Present Illness - Data of Consult Requesting Physician: Balwinder Suarez - Consult Narrative History of present illness: Ms. Sanchez is a 68 year old female - Constitutional Vitals: Temp Pulse Resp BP Pulse Ox 97.6 F 64 16 161/62 98 11/05/18 07:24 11/05/18 07:24 11/05/18 07:24 11/05/18 07:24 11/05/18 07:24 Results - Labs CBC & Chem 7: 11/05/18 07:41 11/05/18 07:41 Labs: Last Result 11/05/18 07:41 Calcium 8.5 L Iron 122 % Saturation 67 H Transferrin 131 L Ferritin 41 Entire Visit 11/05/18 11/05/18 11/05/18 07:41 07:41 07:41 Hgb 9.2 L D Hct 28.2 L PT 22.5 H D Ferritin 41 Total Bilirubin 0.4 AST 14 ALT 8 - ABG ABG results: PT/INR, D-dimer PT 22.5 Seconds (9.4-12.1) H D 11/05/18 07:41 - Impressions Impressions Brain MRI 11/04/18 17:06 IMPRESSION: No acute infarct. D/ / Tani Tellez MD / Tani Tellez MD Interpreting Provider: Tani Tellez MD - Attending Attestation I have personally performed a face to face evaluation on this patient. I have reviewed and agree with the care plan. History and Exam by me shows: Patient seen denies any abdominal pain no GI bleeding. On examination: Central chest a scar previous heart surgery. Abdomen is soft. Assessment: Patient with anemia and underlying history of mechanical mitral valve. Workup for anemia has been negative. Patient could have AVM in the small bowel. Recommendation: Cap endoscopy as an outpatient
--- NOTE | 2018-11-05 09:40 | Electrocardiograph Report ---
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
--- NOTE | 2018-11-05 10:59 | Discharge Summary ---
- NOTES TO OUTPATIENT PROVIDER Notes to Outpatient Provider: Patient was admitted for weakness and found to have UTI. She had also anemia with hemoglobin of 6.4 which responded to blood transfusion. Her INR was elevated and she has to keep an appointment with anti- coagulation clinic. Orders not resulted at time of discharge: Pending orders 11/04/18 14:00 Culture,Urine [RM] Stat 11/05/18 07:34 Occult Blood,Stool [BF] Routine Date of Encounter: 11/05/18 Time of Encounter: 10:00 - Discharge Diagnosis (1) Urinary tract infection Priority: Primary Status: Acute Qualifiers: Urinary tract infection type: acute cystitis Hematuria presence: with hematuria Qualified Code(s): N30.01 - Acute cystitis with hematuria (2) Mechanical heart valve present Priority: Secondary Status: Chronic (3) Supratherapeutic international normalized ratio (INR) Priority: Secondary Status: Resolved (4) CHF (congestive heart failure) Priority: Secondary Status: Chronic Qualifiers: Heart failure type: diastolic Heart failure chronicity: chronic Qualified Code(s): I50.32 - Chronic diastolic (congestive) heart failure (5) Tobacco abuse Priority: Secondary Status: Chronic (6) Stroke Priority: Secondary Status: Suspected Qualifiers: CVA mechanism: embolism Precerebral and cerebral artery: unspecified precerebral artery Qualified Code(s): I63.10 - Cerebral infarction due to embolism of unspecified precerebral artery (7) CKD (chronic kidney disease) Priority: Secondary Status: Acute Qualifiers: Chronic kidney disease stage: stage 4 (severe) Qualified Code(s): N18.4 - Chronic kidney disease, stage 4 (severe) (8) Anemia Priority: Secondary Status: Acute Qualifiers: Anemia type: unspecified type Qualified Code(s): D64.9 - Anemia, unspecified Hospital course: Ms. Sanchez is a 68 year old female with history of chronic kidney disease, atrial fibrillation, mechanical mitral heart valve, MGUS who came into the hospital due to weakness for a month. Patient reported multiple falls in the past few weeks and her last one was today before presentation. She was found to have positive UA for which she was started on IV antibiotics. Patient was also found to have anemia with hemoglobin of 6.2 which responded to blood transfusion. Her INR was also elevated and she responded to vitamin K. Patient decided to leave against medical advise today. Patient had full mental capacity to make her all medical decision she is alert and oriented 3. She understands the risks behind leaving the hospital AGAINST MEDICAL ADVICE including falls, bleeding and possible . She will be discharged home on her own responsibility. I asked her to continue course of antibiotics for her UTI although we do not have the urine cultures back and she understands that. She also understand that interaction between her antibiotics and Coumadin however she decided to leave no matter what. Discharge discussed with: patient Time spent discussing smoking cessation with patient: more than 10 minutes - Time Spent with Patient Total time spent providing and/or coordinating discharge services:50 minutes - Discharge Medications Prescriptions: New Amoxicillin/Clavulanate [Augmentin] 500 mg PO BIDWM #12 tablet Continued Docusate Sodium [Colace] 100 mg PO BID PRN PRN Reason: Constipation Simvastatin [Zocor] 40 mg PO HS OxyCODONE Immed Rel [Roxicodone 10 MG] 10 mg PO TID PRN PRN Reason: Pain Omeprazole [PriLOSEC] 40 mg PO DAILY hydrALAZINE [HydrALAZINE] 25 mg PO Q8HR Metoprolol [Lopressor] 25 mg PO BID Amlodipine Besylate 5 mg PO BID Ferrous Sulfate [Iron] 325 mg PO BID Pregabalin [Lyrica] 75 mg PO BID SitaGLIPtin [Januvia] 100 mg PO DAILY Warfarin Sodium 2.5 mg PO TUFR Warfarin Sodium 3.75 mg PO SUMOWETHSA Furosemide [Lasix] 40 - 80 mg PO DAILY PRN PRN Reason: SWELLING Home Medications: Docusate Sodium [Colace] 100 mg PO BID PRN 10/29/14 [History] Simvastatin [Zocor] 40 mg PO HS 11/01/15 [History] Omeprazole [PriLOSEC] 40 mg PO DAILY 11/29/16 [History] OxyCODONE Immed Rel [Roxicodone 10 MG] 10 mg PO TID PRN 11/29/16 [History] Metoprolol [Lopressor] 25 mg PO BID 07/11/18 [History] hydrALAZINE [HydrALAZINE] 25 mg PO Q8HR 07/11/18 [History] Amlodipine Besylate 5 mg PO BID 11/04/18 [History] Ferrous Sulfate [Iron] 325 mg PO BID 11/04/18 [History] Furosemide [Lasix] 40 - 80 mg PO DAILY PRN 11/04/18 [History] Pregabalin [Lyrica] 75 mg PO BID 11/04/18 [History] SitaGLIPtin [Januvia] 100 mg PO DAILY 11/04/18 [History] Warfarin Sodium 2.5 mg PO TUFR 11/04/18 [History] Warfarin Sodium 3.75 mg PO SUMOWETHSA 11/04/18 [History] Amoxicillin/Clavulanate [Augmentin] 500 mg PO BIDWM #12 tablet 11/05/18 [Rx] Allergies/Adverse Reactions: Allergy/AdvReac Type Severity Reaction Status Date / Time gabapentin [From Neurontin] Allergy Itching Verified 11/04/18 16:25 ibuprofen Allergy Itching Verified 11/04/18 16:25 iodine Allergy Hives Verified 11/04/18 16:25 lisinopril Allergy facial Verified 11/04/18 16:25 swelling naproxen [From Naprosyn] Allergy Itching Verified 11/04/18 16:25 shellfish derived Allergy Hives Verified 11/04/18 16:25 Date of admission: 11/04/18 15:51 Primary care physician: Jet Burgos DO Consults: 11/04/18 16:52 Consult to Occupational Therapy [CONS] Routine Comment: Evaluate, develop and implement POC Reason for Consult: weakness Does patient have active BEDREST order?: No Is patient medically & hemodynamically stable?: Yes Patient assessed for mobility or mobilized this visit?: No Consult to Physical Therapy [CONS] Routine Comment: Evaluate, develop and implement POC Reason for Consult: weakness Does patient have active BEDREST order?: No Is patient medically & hemodynamically stable?: Yes Patient assessed for mobility or mobilized this visit?: No 11/04/18 17:47 Consult to Nutrition [CONS] Routine Comment: Consulting Provider: NUTRITION Reason for Dietary Consult: MST Score 11/05/18 07:35 Consult to Gastroenterology [CONS] Routine Consulting Provider: Gastroenterology [place] Reason for Consult: Anemia Call Completed: No 11/05/18 07:49 Consult to Cardiology [CONS] Routine Comment: Consulting Provider: Cardiology [place] Reason for Consult: troponin elevation Call Completed: No - Constitutional Vitals: Temp Pulse Resp BP Pulse Ox 97.6 F 64 16 161/62 98 11/05/18 07:24 11/05/18 07:24 11/05/18 07:24 11/05/18 07:24 11/05/18 07:24 General appearance: Present: cooperative, A&O X 3, obese Exam: General: Patient is alert, oriented 3.MILD dsitress Head: Atraumatic, normal inspection, normocephalic. Eye: EOMI, PERRLA. ENT: Mucous membranes moist. No odontogenic infection noted. Neck: Normal inspection, no meningismus. Respiratory: No respiratory distress, rhonchi, or wheezes noted. Cardiovascular: Regular rate and regular rhythm, mechanical murmur is heard at apex GI: Soft, nondistended, normal bowel sounds. Extremities:No joint swelling, pedal edema, or tenderness noted. strength is 3/5 in LEs Neurological: Alert, oriented 3, no focal deficits. Psychiatric: normal affect, normal mood. Skin: Dry, intact, warm. Normal color. No rashes. - Patient Status Disposition: Left Against Medical Advice Functional capacity at discharge: independent ambulation Overall status at discharge: patient is not back to baseline - Discharge Instructions Follow Up With: Jet Burgos DO [Primary Care Provider] - - Diet and Activity Activity: other (Left before evaluated by PT) Diet: low salt diet
[2018-11-05] MEDS ORDERED: *HR* Warfarin 5 MG TABLET PO ONE (18:00)
[2018-11-05] MEDS ORDERED: Warfarin perPT PO PRN (18:00)
== END 2018-11-05 17:12 | disposition left against medical advice (07) ==
LOC: 2NENU 12:14 → EMEROOARM 12:14 → SUATTDRO 15:51 → 2NENU 16:49 → UNDODISOB 11-05 14:03
PROVIDERS: ADMIT Internal Medicine; ATTEND Internal Medicine

== ENCOUNTER 2019-01-17 13:26 | Inpatient (IN) ==
[2019-01-17] MEDS ORDERED: 0.9 % Sodium Chloride 500 ML IVC ONE (13:45)
[2019-01-17 14:13] LABS: Bilirubin,Urine Small (Negative); Blood,Urine Negative (Negative); Clarity,Urine Turbid (Clear); Color,Urine Yellow (Yellow); Glucose,Urine (UA) Normal (Normal); Ketones,Urine Negative (Negative); Leukocyte Esterase,Urine Large (Negative); Nitrite,Urine Negative (Negative); Protein,Urine >=300 mg/dL (Neg-Trace); Specific Gravity,Urine 1.016 (1.010-1.025); Urobilinogen,Urine Normal (Normal)
[2019-01-17] MEDS ORDERED: Pantoprazole 40 MG VIAL IVP ONE (14:14)
[2019-01-17 14:16] LABS: Bacteria,Urine Many per hpf (None-Few); Hyaline Casts,Urine None Seen per lpf (None-Few); Squamous Epithelial Cell,Urine Moderate per lpf (None-Few); WBC,Urine TNTC per hpf (0-3)
[2019-01-17] MEDS ORDERED: *HR* FentaNYL (PF) 100 MCG/2 ML VIAL IVP ONE (14:42)
[2019-01-17 15:02] LABS: Eosinophils % 0.2 %
[2019-01-17 15:04] LABS: Hematocrit 17.5 % (35.3-44.9); Immature Granulocytes % 0.4 % (0-4); Lymphocytes # 0.7 K/mcL (0.6-4.6); Lymphocytes % 5.3 %; Mean Corpuscular HGB Conc 30.3 g/dL (31.6-35.5); Mean Corpuscular Hemoglobin 28.3 pg (28.0-33.3); Mean Corpuscular Volume 93.6 fL (83.0-100.0); Mean Platelet Volume 12.2 fL (9.4-12.4); Monocytes # 0.9 K/mcL (0.0-1.3); Monocytes % 7.5 %; Nucleated Red Blood Cells 0.4 /100 WBC (0); Platelet Count 315 K/mcL (140-400); Red Blood Count 1.87 M/mcL (3.82-4.97); Red Cell Distribution Width 17.7 % (11.5-14.5); Segmented Neutrophils % 86.6 %; White Blood Count 12.2 K/mcL (4.3-11.1)
[2019-01-17 15:22] LABS: INR 6.7; Prothrombin Time 75.8 Seconds (9.4-12.1)
[2019-01-17 15:24] LABS: Bilirubin,Total 0.4 mg/dL (0.3-1.0); Calcium 8.2 mg/dL (8.6-10.3); Magnesium 2.5 mg/dL (1.6-2.6); Potassium 4.3 mEq/L (3.5-5.1); Troponin I 0.56 ng/mL (< 0.04)
[2019-01-17 15:28] LABS: Neutrophils # 10.6 K/mcL (1.6-8.9)
[2019-01-17] MEDS ORDERED: 0.9 % Sodium Chloride 1,000 ML IVC ONE ×2 (15:29→15:47)
[2019-01-17 15:30] LABS: Hemoglobin 5.3 g/dL (11.5-15.4)
[2019-01-17] MEDS ORDERED: Naloxone 0.4 MG/ML INJ IVP PRN (16:36)
[2019-01-17] MEDS ORDERED: Ondansetron 4 MG/2 ML VIAL IVP PRN (16:36)
[2019-01-17] MEDS ORDERED: *HR* Dextrose 50 % in Water (Syg) 50 ML SYRINGE IVP PRN (17:23)
[2019-01-17] MEDS ORDERED: Dextrose Gel 15 GM/37.5 ML TUBE PO PRN ×2 (17:23)
[2019-01-17] MEDS ORDERED: D5% in Water 1,000 ML IVC PRN (17:23)
[2019-01-17] MEDS ORDERED: 0.9 % Sodium Chloride 250 ML ONE ×2 (17:29→22:59)
[2019-01-17] MEDS ORDERED: 0.9 % Sodium Chloride 500 ML ONE (18:17)
[2019-01-17] MEDS: *HR* OxyCODONE Immed Rel 5 MG TABLET PO PRN (18:39)
[2019-01-17] MEDS: cefTRIAXone 1,000 MG in Water for inj. (sterile) 10 ML IVP SCH (21:33)
[2019-01-17 22:18] LABS: Hematocrit 23.4 % (35.3-44.9)
[2019-01-17 22:19] LABS: Hemoglobin 7.4 g/dL (11.5-15.4)
[2019-01-17] MEDS ORDERED: Perflutren Lipid Microsphere 1.3 ML in 0.9 % Sodium Chloride 8.7 ML IVP ONE (23:08)
[2019-01-17] MEDS ORDERED: Perflutren Lipid Microsphere 2 ML VIAL ONE (23:10)
[2019-01-17] MEDS: Pregabalin 75 MG CAPSULE PO SCH (23:35)
[2019-01-17] MEDS: Insulin LISPRO 300 UNITS/3 ML VIAL SQ SCH (23:51)
[2019-01-17] MEDS: Pantoprazole 40 MG VIAL IVP SCH (23:52)
[2019-01-17] MEDS: Ringers Solution, Lactated 1,000 ML IVC SCH (23:58)
[2019-01-18] MEDS ORDERED: 0.9 % Sodium Chloride 250 ML ONE (02:48)
[2019-01-18 03:40] LABS: INR 2.1; Prothrombin Time 23.7 Seconds (9.4-12.1)
[2019-01-18 03:43] LABS: Basophils % 0.1 %; Eosinophils % 0.4 %; Hematocrit 20.4 % (35.3-44.9); Hemoglobin 6.6 g/dL (11.5-15.4); Immature Granulocytes % 0.4 % (0-4); Mean Corpuscular HGB Conc 32.4 g/dL (31.6-35.5); Mean Corpuscular Hemoglobin 28.9 pg (28.0-33.3); Mean Corpuscular Volume 89.5 fL (83.0-100.0); Monocytes # 1.1 K/mcL (0.0-1.3); Monocytes % 11.1 %; Nucleated Red Blood Cells 0.4 /100 WBC (0); Platelet Count 291 K/mcL (140-400); Red Blood Count 2.28 M/mcL (3.82-4.97); Red Cell Distribution Width 17.1 % (11.5-14.5); White Blood Count 10.3 K/mcL (4.3-11.1)
[2019-01-18 04:01] LABS: Calcium 7.8 mg/dL (8.6-10.3); Magnesium 2.3 mg/dL (1.6-2.6); Potassium 3.6 mEq/L (3.5-5.1)
[2019-01-18] MEDS: *HR* OxyCODONE Immed Rel 5 MG TABLET PO PRN ×2 (04:10→15:45)
[2019-01-18] MEDS: Pantoprazole 40 MG VIAL IVP SCH ×2 (04:11→17:34)
[2019-01-18] MEDS: Insulin LISPRO 300 UNITS/3 ML VIAL SQ SCH ×4 (07:38→21:23)
[2019-01-18 07:43] LABS: Hematocrit 23.8 % (35.3-44.9); Hemoglobin 7.8 g/dL (11.5-15.4)
[2019-01-18] MEDS: Pregabalin 75 MG CAPSULE PO SCH ×2 (07:51→21:40)
[2019-01-18] MEDS ORDERED: D5% in Lactated Ringers 1,000 ML IVC SCH (08:30)
[2019-01-18] MEDS: Ringers Solution, Lactated 1,000 ML IVC SCH (09:07)
[2019-01-18] MEDS ORDERED: 0.9 % Sodium Chloride 250 ML IVC SCH (14:45)
[2019-01-18 15:32] LABS: Basophils % 0.2 %; Eosinophils # 0.1 K/mcL (0.0-0.6); Eosinophils % 0.6 %; Hematocrit 23.5 % (35.3-44.9); Hemoglobin 7.9 g/dL (11.5-15.4); Immature Granulocytes % 0.6 % (0-4); Lymphocytes % 7.7 %; Mean Corpuscular HGB Conc 33.6 g/dL (31.6-35.5); Mean Corpuscular Hemoglobin 29.2 pg (28.0-33.3); Mean Corpuscular Volume 86.7 fL (83.0-100.0); Mean Platelet Volume 11.7 fL (9.4-12.4); Monocytes # 1.3 K/mcL (0.0-1.3); Monocytes % 10.5 %; Neutrophils # 10.2 K/mcL (1.6-8.9); Nucleated Red Blood Cells 0.4 /100 WBC (0); Platelet Count 277 K/mcL (140-400); Red Blood Count 2.71 M/mcL (3.82-4.97); Red Cell Distribution Width 17.3 % (11.5-14.5); Segmented Neutrophils % 80.4 %; White Blood Count 12.7 K/mcL (4.3-11.1)
[2019-01-18 15:35] LABS: INR 1.4; Prothrombin Time 15.5 Seconds (9.4-12.1)
[2019-01-18] MEDS ORDERED: *HR* Heparin 5,000 UNIT/ML VIAL IVP PRN ×2 (16:21)
[2019-01-18] MEDS ORDERED: *HR* Heparin 5,000 UNIT/ML VIAL IVP ONE (16:21)
[2019-01-18] MEDS: cefTRIAXone 1,000 MG in Water for inj. (sterile) 10 ML IVP SCH (17:33)
[2019-01-18] MEDS: D5% in Lactated Ringers 1,000 ML IVC SCH (18:28)
[2019-01-18 20:49] LABS: Hemoglobin 8.8 g/dL (11.5-15.4); Mean Corpuscular HGB Conc 33.8 g/dL (31.6-35.5); Mean Corpuscular Hemoglobin 29.3 pg (28.0-33.3); Mean Corpuscular Volume 86.7 fL (83.0-100.0); Mean Platelet Volume 11.9 fL (9.4-12.4); Platelet Count 256 K/mcL (140-400); Red Cell Distribution Width 16.7 % (11.5-14.5); White Blood Count 13.7 K/mcL (4.3-11.1)
[2019-01-18] MEDS: Heparin 25,000 UNIT/250 ML D5W 25,000 UNIT/250 ML IV.SOLN IVC SCH (21:11)
[2019-01-19] MEDS: *HR* OxyCODONE Immed Rel 5 MG TABLET PO PRN ×4 (01:36→22:10)
[2019-01-19 03:21] LABS: Basophils % 0.1 %; Eosinophils # 0.1 K/mcL (0.0-0.6); Hematocrit 25.4 % (35.3-44.9); Hemoglobin 8.6 g/dL (11.5-15.4); Immature Granulocytes % 0.5 % (0-4); Lymphocytes # 1.2 K/mcL (0.6-4.6); Mean Corpuscular HGB Conc 33.9 g/dL (31.6-35.5); Mean Corpuscular Hemoglobin 29.5 pg (28.0-33.3); Mean Platelet Volume 11.8 fL (9.4-12.4); Monocytes # 1.4 K/mcL (0.0-1.3); Neutrophils # 11.5 K/mcL (1.6-8.9); Nucleated Red Blood Cells 0.3 /100 WBC (0); Platelet Count 246 K/mcL (140-400); Red Blood Count 2.92 M/mcL (3.82-4.97); Red Cell Distribution Width 16.9 % (11.5-14.5); Segmented Neutrophils % 80.4 %; White Blood Count 14.3 K/mcL (4.3-11.1)
[2019-01-19 03:39] LABS: Magnesium 2.3 mg/dL (1.6-2.6); Phosphorous 4.3 mg/dL (2.7-4.5); Potassium 3.6 mEq/L (3.5-5.1)
[2019-01-19] MEDS: Nystatin POWDER 30 GM BOTTLE TP PRN ×2 (04:00→09:35)
[2019-01-19] MEDS: Insulin LISPRO 300 UNITS/3 ML VIAL SQ SCH ×3 (06:10→17:28)
[2019-01-19] MEDS: Pantoprazole 40 MG VIAL IVP SCH (06:11)
[2019-01-19] MEDS: Pregabalin 75 MG CAPSULE PO SCH ×2 (08:44→22:10)
[2019-01-19] MEDS: D5% in Lactated Ringers 1,000 ML IVC SCH (09:10)
[2019-01-19 13:18] LABS: Potassium,Urine 20.7 mEq/L; Sodium, Urine 39.2 mEq/L
[2019-01-19 16:29] LABS: Basophils % 0.1 %; Eosinophils # 0.2 K/mcL (0.0-0.6); Eosinophils % 1.7 %; Hematocrit 26.7 % (35.3-44.9); Hemoglobin 8.8 g/dL (11.5-15.4); Immature Granulocytes % 0.5 % (0-4); Lymphocytes # 1.1 K/mcL (0.6-4.6); Lymphocytes % 7.7 %; Mean Corpuscular Hemoglobin 28.9 pg (28.0-33.3); Mean Corpuscular Volume 87.8 fL (83.0-100.0); Mean Platelet Volume 11.8 fL (9.4-12.4); Monocytes # 1.4 K/mcL (0.0-1.3); Monocytes % 10.1 %; Neutrophils # 11.1 K/mcL (1.6-8.9); Nucleated Red Blood Cells 0.2 /100 WBC (0); Platelet Count 270 K/mcL (140-400); Red Blood Count 3.04 M/mcL (3.82-4.97); Red Cell Distribution Width 16.9 % (11.5-14.5); Segmented Neutrophils % 79.9 %; White Blood Count 13.8 K/mcL (4.3-11.1)
[2019-01-19] MEDS: Heparin 25,000 UNIT/250 ML D5W 25,000 UNIT/250 ML IV.SOLN IVC SCH (17:24)
[2019-01-19] MEDS: cefTRIAXone 1,000 MG in Water for inj. (sterile) 10 ML IVP SCH (17:27)
[2019-01-19 17:42] LABS: Uric Acid 12.6 mg/dL (2.3-7.6)
[2019-01-20] MEDS: Insulin LISPRO 300 UNITS/3 ML VIAL SQ SCH ×4 (00:57→18:15)
[2019-01-20] MEDS ORDERED: DiphenhydraMINE CREAM 28.4 GM TUBE TP PRN (03:33)
[2019-01-20 03:37] LABS: Basophils % 0.2 %; Eosinophils # 0.3 K/mcL (0.0-0.6); Hematocrit 25.8 % (35.3-44.9); Hemoglobin 8.1 g/dL (11.5-15.4); Immature Granulocytes % 0.4 % (0-4); Lymphocytes # 1.1 K/mcL (0.6-4.6); Lymphocytes % 8.5 %; Mean Corpuscular HGB Conc 31.4 g/dL (31.6-35.5); Mean Corpuscular Hemoglobin 28.8 pg (28.0-33.3); Mean Corpuscular Volume 91.8 fL (83.0-100.0); Mean Platelet Volume 12.2 fL (9.4-12.4); Monocytes # 1.4 K/mcL (0.0-1.3); Monocytes % 10.9 %; Neutrophils # 10.2 K/mcL (1.6-8.9); Nucleated Red Blood Cells 0.3 /100 WBC (0); Platelet Count 252 K/mcL (140-400); Red Blood Count 2.81 M/mcL (3.82-4.97)
[2019-01-20 03:54] LABS: Calcium 8.1 mg/dL (8.6-10.3); Magnesium 2.2 mg/dL (1.6-2.6); Phosphorous 4.1 mg/dL (2.7-4.5); Potassium 3.7 mEq/L (3.5-5.1)
[2019-01-20] MEDS: *HR* OxyCODONE Immed Rel 5 MG TABLET PO PRN ×2 (06:44→20:25)
[2019-01-20] MEDS: Pregabalin 75 MG CAPSULE PO SCH ×2 (07:50→20:25)
[2019-01-20] MEDS: Pantoprazole 40 MG VIAL IVP SCH (07:51)
[2019-01-20] MEDS: Heparin 25,000 UNIT/250 ML D5W 25,000 UNIT/250 ML IV.SOLN IVC SCH (15:19)
[2019-01-20] MEDS: cefTRIAXone 1,000 MG in Water for inj. (sterile) 10 ML IVP SCH (16:29)
[2019-01-20] MEDS ORDERED: Warfarin perPT PO SCH (18:00)
[2019-01-20] MEDS ORDERED: *HR* Warfarin 3 MG TABLET PO ONE (18:05)
[2019-01-20 18:15] LABS: Protein/Creatinine Ratio,Urine 1.19 mg/mg (0.00-0.20)
[2019-01-20] MEDS ORDERED: Acetaminophen 325 MG TABLET PO PRN (20:47)
[2019-01-21] MEDS: Insulin LISPRO 300 UNITS/3 ML VIAL SQ SCH ×4 (00:04→17:21)
[2019-01-21] MEDS: *HR* OxyCODONE Immed Rel 5 MG TABLET PO PRN ×3 (03:34→17:22)
[2019-01-21 04:26] LABS: INR 1.5; Prothrombin Time 17.6 Seconds (9.4-12.1)
[2019-01-21 04:28] LABS: Basophils % 0.1 %; Eosinophils # 0.1 K/mcL (0.0-0.6); Eosinophils % 0.5 %; Hemoglobin 8.4 g/dL (11.5-15.4); Immature Granulocytes % 0.4 % (0-4); Lymphocytes # 1.1 K/mcL (0.6-4.6); Mean Corpuscular HGB Conc 31.1 g/dL (31.6-35.5); Mean Corpuscular Hemoglobin 28.5 pg (28.0-33.3); Mean Corpuscular Volume 91.5 fL (83.0-100.0); Mean Platelet Volume 12.6 fL (9.4-12.4); Monocytes # 1.9 K/mcL (0.0-1.3); Monocytes % 13.4 %; Neutrophils # 10.7 K/mcL (1.6-8.9); Nucleated Red Blood Cells 0.1 /100 WBC (0); Platelet Count 261 K/mcL (140-400); Red Blood Count 2.95 M/mcL (3.82-4.97); Red Cell Distribution Width 16.5 % (11.5-14.5); Segmented Neutrophils % 77.6 %; White Blood Count 13.8 K/mcL (4.3-11.1)
[2019-01-21 04:44] LABS: Calcium 8.2 mg/dL (8.6-10.3); Magnesium 2.2 mg/dL (1.6-2.6); Phosphorous 4.5 mg/dL (2.7-4.5)
[2019-01-21] MEDS: Heparin 25,000 UNIT/250 ML D5W 25,000 UNIT/250 ML IV.SOLN IVC SCH (07:23)
[2019-01-21] MEDS ORDERED: hydrALAZINE 10 MG TABLET PO SCH (08:00)
[2019-01-21] MEDS: Pantoprazole 40 MG VIAL IVP SCH (08:05)
[2019-01-21] MEDS: Pregabalin 75 MG CAPSULE PO SCH ×2 (08:05→20:15)
[2019-01-21] MEDS: Nystatin POWDER 30 GM BOTTLE TP PRN (08:24)
[2019-01-21] MEDS: hydrALAZINE 25 MG TABLET PO SCH (14:45)
[2019-01-21] MEDS: Aspirin Enteric Coated 81 MG Tablet PO SCH (14:45)
[2019-01-21] MEDS: cefTRIAXone 1,000 MG in Water for inj. (sterile) 10 ML IVP SCH (17:18)
[2019-01-21] MEDS ORDERED: *HR* Warfarin 2.5 MG TABLET PO ONE (18:00)
[2019-01-22] MEDS: Insulin LISPRO 300 UNITS/3 ML VIAL SQ SCH ×4 (00:16→18:18)
[2019-01-22] MEDS: Acetaminophen 325 MG TABLET PO PRN ×2 (00:19→08:20)
[2019-01-22] MEDS: hydrALAZINE 25 MG TABLET PO SCH ×3 (00:19→15:07)
[2019-01-22 03:41] LABS: Basophils % 0.2 %; Eosinophils # 0.1 K/mcL (0.0-0.6); Eosinophils % 0.6 %; Hematocrit 23.3 % (35.3-44.9); Hemoglobin 7.7 g/dL (11.5-15.4); Immature Granulocytes % 0.5 % (0-4); Lymphocytes % 8.5 %; Mean Corpuscular Hemoglobin 28.9 pg (28.0-33.3); Mean Corpuscular Volume 87.6 fL (83.0-100.0); Mean Platelet Volume 11.5 fL (9.4-12.4); Monocytes # 1.6 K/mcL (0.0-1.3); Monocytes % 13.1 %; Neutrophils # 9.5 K/mcL (1.6-8.9); Platelet Count 241 K/mcL (140-400); Red Blood Count 2.66 M/mcL (3.82-4.97); Segmented Neutrophils % 77.1 %; White Blood Count 12.3 K/mcL (4.3-11.1)
[2019-01-22 03:45] LABS: Heparin anti-factor XA UFH 0.33 IU/mL (0.30-0.70)
[2019-01-22 04:02] LABS: Magnesium 2.1 mg/dL (1.6-2.6); Phosphorous 4.3 mg/dL (2.7-4.5); Potassium 3.8 mEq/L (3.5-5.1)
[2019-01-22] MEDS ORDERED: 0.9 % Sodium Chloride 250 ML IVC SCH (07:45)
[2019-01-22] MEDS: Heparin 25,000 UNIT/250 ML D5W 25,000 UNIT/250 ML IV.SOLN IVC SCH (08:10)
[2019-01-22] MEDS: Aspirin Enteric Coated 81 MG Tablet PO SCH (08:21)
[2019-01-22] MEDS: Pantoprazole 40 MG VIAL IVP SCH (08:21)
[2019-01-22] MEDS: Pregabalin 75 MG CAPSULE PO SCH ×2 (08:21→20:03)
[2019-01-22] MEDS: Piperacillin/Tazobactam 3.375 GM in 0.9 % Sodium Chloride Mini Bag 100 ML IVPB SCH ×2 (08:22→18:18)
[2019-01-22 11:01] LABS: INR 2.1; Prothrombin Time 23.6 Seconds (9.4-12.1)
[2019-01-22] MEDS ORDERED: *HR* Propofol 200 MG/20 ML VIAL IVP ONE (13:43)
[2019-01-22] MEDS ORDERED: *HR* Vasopressin 20 UNIT/ML VIAL ONE (13:57)
[2019-01-22] MEDS ORDERED: Lidocaine -MPF 2% 2 ML VIAL ONE (13:58)
[2019-01-22 15:32] LABS: Eosinophils % 1.9 %; Hematocrit 27.7 % (35.3-44.9); Hemoglobin 9.1 g/dL (11.5-15.4); Immature Granulocytes % 0.6 % (0-4); Lymphocytes % 10.3 %; Mean Corpuscular HGB Conc 32.9 g/dL (31.6-35.5); Mean Corpuscular Volume 88.2 fL (83.0-100.0); Monocytes % 12.4 %; Platelet Count 249 K/mcL (140-400); Red Blood Count 3.14 M/mcL (3.82-4.97); Red Cell Distribution Width 15.8 % (11.5-14.5); Segmented Neutrophils % 74.6 %
[2019-01-22 15:33] LABS: Basophils % 0.2 %; Eosinophils # 0.2 K/mcL (0.0-0.6); Monocytes # 1.2 K/mcL (0.0-1.3); Neutrophils # 7.4 K/mcL (1.6-8.9)
[2019-01-22] MEDS: *HR* OxyCODONE Immed Rel 5 MG TABLET PO PRN (16:30)
[2019-01-22 16:40] LABS: Basophils % 0.3 %; Eosinophils # 0.2 K/mcL (0.0-0.6); Eosinophils % 1.8 %; Hematocrit 28.4 % (35.3-44.9); Hemoglobin 9.5 g/dL (11.5-15.4); Immature Granulocytes % 0.4 % (0-4); Lymphocytes # 1.2 K/mcL (0.6-4.6); Lymphocytes % 10.4 %; Mean Corpuscular HGB Conc 33.5 g/dL (31.6-35.5); Mean Corpuscular Hemoglobin 29.3 pg (28.0-33.3); Mean Corpuscular Volume 87.7 fL (83.0-100.0); Monocytes # 1.4 K/mcL (0.0-1.3); Monocytes % 12.3 %; Neutrophils # 8.5 K/mcL (1.6-8.9); Platelet Count 247 K/mcL (140-400); Red Blood Count 3.24 M/mcL (3.82-4.97); Red Cell Distribution Width 15.7 % (11.5-14.5); Segmented Neutrophils % 74.8 %; White Blood Count 11.3 K/mcL (4.3-11.1)
[2019-01-22 20:55] LABS: Basophils % 0.2 %; Eosinophils # 0.2 K/mcL (0.0-0.6); Eosinophils % 1.5 %; Hematocrit 27.7 % (35.3-44.9); Hemoglobin 8.7 g/dL (11.5-15.4); Immature Granulocytes % 0.5 % (0-4); Lymphocytes # 0.8 K/mcL (0.6-4.6); Mean Corpuscular HGB Conc 31.4 g/dL (31.6-35.5); Mean Corpuscular Hemoglobin 28.4 pg (28.0-33.3); Mean Corpuscular Volume 90.5 fL (83.0-100.0); Mean Platelet Volume 12.2 fL (9.4-12.4); Monocytes # 1.2 K/mcL (0.0-1.3); Monocytes % 11.3 %; Neutrophils # 8.7 K/mcL (1.6-8.9); Platelet Count 225 K/mcL (140-400); Red Blood Count 3.06 M/mcL (3.82-4.97); Red Cell Distribution Width 15.9 % (11.5-14.5); Segmented Neutrophils % 79.5 %; White Blood Count 10.9 K/mcL (4.3-11.1)
[2019-01-22 21:01] LABS: INR 2.6; Prothrombin Time 29.2 Seconds (9.4-12.1)
[2019-01-22 21:03] LABS: Activated Partial Thrombo Time 39.2 Seconds (26.0-36.0)
[2019-01-23] MEDS: hydrALAZINE 25 MG TABLET PO SCH ×3 (00:06→16:50)
[2019-01-23 00:40] LABS: Basophils % 0.3 %; Eosinophils # 0.2 K/mcL (0.0-0.6); Eosinophils % 2.2 %; Hematocrit 25.8 % (35.3-44.9); Hemoglobin 8.6 g/dL (11.5-15.4); Immature Granulocytes % 0.5 % (0-4); Mean Corpuscular HGB Conc 33.3 g/dL (31.6-35.5); Mean Corpuscular Hemoglobin 29.3 pg (28.0-33.3); Mean Corpuscular Volume 87.8 fL (83.0-100.0); Mean Platelet Volume 12.2 fL (9.4-12.4); Monocytes # 1.3 K/mcL (0.0-1.3); Monocytes % 12.3 %; Neutrophils # 7.7 K/mcL (1.6-8.9); Platelet Count 224 K/mcL (140-400); Red Blood Count 2.94 M/mcL (3.82-4.97); Segmented Neutrophils % 74.7 %; White Blood Count 10.3 K/mcL (4.3-11.1)
[2019-01-23] MEDS: Insulin LISPRO 300 UNITS/3 ML VIAL SQ SCH ×5 (01:30→21:53)
[2019-01-23 04:36] LABS: Basophils % 0.2 %; Eosinophils # 0.2 K/mcL (0.0-0.6); Hematocrit 26.8 % (35.3-44.9); Immature Granulocytes % 0.4 % (0-4); Lymphocytes # 1.1 K/mcL (0.6-4.6); Lymphocytes % 10.5 %; Mean Corpuscular HGB Conc 33.6 g/dL (31.6-35.5); Mean Corpuscular Hemoglobin 29.3 pg (28.0-33.3); Mean Corpuscular Volume 87.3 fL (83.0-100.0); Mean Platelet Volume 12.3 fL (9.4-12.4); Monocytes # 1.3 K/mcL (0.0-1.3); Monocytes % 12.7 %; Neutrophils # 7.8 K/mcL (1.6-8.9); Platelet Count 240 K/mcL (140-400); Red Blood Count 3.07 M/mcL (3.82-4.97); Red Cell Distribution Width 16.1 % (11.5-14.5); Segmented Neutrophils % 74.2 %; White Blood Count 10.5 K/mcL (4.3-11.1)
[2019-01-23 04:39] LABS: INR 2.9; Prothrombin Time 33.4 Seconds (9.4-12.1)
[2019-01-23 04:55] LABS: Calcium 7.9 mg/dL (8.6-10.3); Phosphorous 3.8 mg/dL (2.7-4.5)
[2019-01-23] MEDS: Pregabalin 75 MG CAPSULE PO SCH ×2 (08:16→21:53)
[2019-01-23] MEDS: Aspirin Enteric Coated 81 MG Tablet PO SCH (08:17)
[2019-01-23] MEDS: Pantoprazole 40 MG VIAL IVP SCH (08:17)
[2019-01-23 10:17] LABS: Basophils % 0.2 %; Eosinophils # 0.3 K/mcL (0.0-0.6); Eosinophils % 2.8 %; Hematocrit 26.2 % (35.3-44.9); Hemoglobin 8.3 g/dL (11.5-15.4); Immature Granulocytes % 0.2 % (0-4); Lymphocytes % 10.4 %; Mean Corpuscular HGB Conc 31.7 g/dL (31.6-35.5); Mean Corpuscular Hemoglobin 28.5 pg (28.0-33.3); Mean Platelet Volume 11.5 fL (9.4-12.4); Monocytes # 1.2 K/mcL (0.0-1.3); Monocytes % 13.4 %; Neutrophils # 6.8 K/mcL (1.6-8.9); Platelet Count 222 K/mcL (140-400); Red Blood Count 2.91 M/mcL (3.82-4.97); Red Cell Distribution Width 15.9 % (11.5-14.5); White Blood Count 9.3 K/mcL (4.3-11.1)
[2019-01-23] MEDS ORDERED: levoFLOXacin 750 MG TABLET PO SCH (16:30)
[2019-01-23 16:49] LABS: Basophils % 0.2 %; Eosinophils # 0.2 K/mcL (0.0-0.6); Eosinophils % 2.8 %; Hematocrit 24.8 % (35.3-44.9); Hemoglobin 8.4 g/dL (11.5-15.4); Immature Granulocytes % 0.5 % (0-4); Lymphocytes # 1.1 K/mcL (0.6-4.6); Mean Corpuscular HGB Conc 33.9 g/dL (31.6-35.5); Mean Corpuscular Hemoglobin 29.3 pg (28.0-33.3); Mean Corpuscular Volume 86.4 fL (83.0-100.0); Mean Platelet Volume 11.9 fL (9.4-12.4); Monocytes # 1.2 K/mcL (0.0-1.3); Monocytes % 13.7 %; Platelet Count 221 K/mcL (140-400); Red Blood Count 2.87 M/mcL (3.82-4.97); Red Cell Distribution Width 15.9 % (11.5-14.5); Segmented Neutrophils % 69.8 %; White Blood Count 8.6 K/mcL (4.3-11.1)
[2019-01-23 22:56] LABS: Basophils % 0.4 %; Eosinophils # 0.2 K/mcL (0.0-0.6); Eosinophils % 1.9 %; Hematocrit 25.5 % (35.3-44.9); Hemoglobin 8.6 g/dL (11.5-15.4); Immature Granulocytes % 0.5 % (0-4); Lymphocytes # 0.9 K/mcL (0.6-4.6); Lymphocytes % 11.2 %; Mean Corpuscular HGB Conc 33.7 g/dL (31.6-35.5); Mean Corpuscular Hemoglobin 29.4 pg (28.0-33.3); Mean Platelet Volume 11.8 fL (9.4-12.4); Monocytes % 12.2 %; Neutrophils # 6.2 K/mcL (1.6-8.9); Platelet Count 227 K/mcL (140-400); Red Blood Count 2.93 M/mcL (3.82-4.97); Segmented Neutrophils % 73.8 %; White Blood Count 8.3 K/mcL (4.3-11.1)
[2019-01-24] MEDS: *HR* OxyCODONE Immed Rel 5 MG TABLET PO PRN (00:03)
[2019-01-24] MEDS: hydrALAZINE 25 MG TABLET PO SCH ×4 (00:03→23:20)
[2019-01-24] MEDS: Acetaminophen 325 MG TABLET PO PRN (03:51)
[2019-01-24 04:31] LABS: Basophils % 0.2 %; Eosinophils # 0.2 K/mcL (0.0-0.6); Eosinophils % 1.9 %; Hematocrit 26.3 % (35.3-44.9); Hemoglobin 8.7 g/dL (11.5-15.4); Immature Granulocytes % 0.4 % (0-4); Lymphocytes # 1.1 K/mcL (0.6-4.6); Lymphocytes % 13.9 %; Mean Corpuscular HGB Conc 33.1 g/dL (31.6-35.5); Mean Corpuscular Hemoglobin 28.5 pg (28.0-33.3); Mean Corpuscular Volume 86.2 fL (83.0-100.0); Mean Platelet Volume 11.4 fL (9.4-12.4); Monocytes % 12.3 %; Neutrophils # 5.8 K/mcL (1.6-8.9); Platelet Count 238 K/mcL (140-400); Red Blood Count 3.05 M/mcL (3.82-4.97); Red Cell Distribution Width 15.8 % (11.5-14.5); Segmented Neutrophils % 71.3 %; White Blood Count 8.1 K/mcL (4.3-11.1)
[2019-01-24 04:39] LABS: INR 3.6; Prothrombin Time 40.7 Seconds (9.4-12.1)
[2019-01-24 04:51] LABS: Calcium 8.1 mg/dL (8.6-10.3); Magnesium 1.9 mg/dL (1.6-2.6); Phosphorous 3.4 mg/dL (2.7-4.5); Potassium 3.9 mEq/L (3.5-5.1)
[2019-01-24] MEDS: Pregabalin 75 MG CAPSULE PO SCH ×2 (08:19→22:11)
[2019-01-24] MEDS: Pantoprazole 40 MG VIAL IVP SCH (08:19)
[2019-01-24] MEDS: Aspirin Enteric Coated 81 MG Tablet PO SCH (08:19)
[2019-01-24] MEDS: Insulin LISPRO 300 UNITS/3 ML VIAL SQ SCH ×4 (08:19→22:12)
[2019-01-24 11:50] LABS: % Iron Saturation 11 % (15-50); Iron 16 mcg/dL (50-170); Transferrin 101 mg/dL (203-362)
[2019-01-24 12:08] LABS: Ferritin 176 ng/mL (10-120)
[2019-01-24 12:21] LABS: Basophils % 0.2 %; Eosinophils # 0.2 K/mcL (0.0-0.6); Eosinophils % 2.4 %; Hematocrit 25.3 % (35.3-44.9); Immature Granulocytes % 0.4 % (0-4); Lymphocytes # 1.1 K/mcL (0.6-4.6); Lymphocytes % 13.4 %; Mean Corpuscular HGB Conc 31.6 g/dL (31.6-35.5); Mean Corpuscular Hemoglobin 28.6 pg (28.0-33.3); Mean Corpuscular Volume 90.4 fL (83.0-100.0); Mean Platelet Volume 12.2 fL (9.4-12.4); Monocytes % 12.4 %; Platelet Count 217 K/mcL (140-400); Red Cell Distribution Width 15.6 % (11.5-14.5); Segmented Neutrophils % 71.2 %; White Blood Count 8.4 K/mcL (4.3-11.1)
[2019-01-24 20:27] LABS: Basophils % 0.2 %; Eosinophils # 0.2 K/mcL (0.0-0.6); Eosinophils % 2.5 %; Hematocrit 27.3 % (35.3-44.9); Hemoglobin 8.9 g/dL (11.5-15.4); Immature Granulocytes % 0.4 % (0-4); Lymphocytes % 11.7 %; Mean Corpuscular HGB Conc 32.6 g/dL (31.6-35.5); Mean Corpuscular Hemoglobin 28.4 pg (28.0-33.3); Mean Corpuscular Volume 87.2 fL (83.0-100.0); Mean Platelet Volume 12.4 fL (9.4-12.4); Monocytes % 11.2 %; Neutrophils # 6.3 K/mcL (1.6-8.9); Platelet Count 253 K/mcL (140-400); Red Blood Count 3.13 M/mcL (3.82-4.97); Red Cell Distribution Width 15.6 % (11.5-14.5); White Blood Count 8.5 K/mcL (4.3-11.1)
[2019-01-24 20:36] LABS: INR 3.8; Prothrombin Time 43.2 Seconds (9.4-12.1)
[2019-01-25 07:21] LABS: Basophils % 0.3 %; Eosinophils # 0.2 K/mcL (0.0-0.6); Eosinophils % 2.2 %; Hematocrit 27.2 % (35.3-44.9); Hemoglobin 8.9 g/dL (11.5-15.4); Immature Granulocytes % 0.5 % (0-4); Lymphocytes # 0.9 K/mcL (0.6-4.6); Lymphocytes % 11.9 %; Mean Corpuscular HGB Conc 32.7 g/dL (31.6-35.5); Mean Corpuscular Hemoglobin 28.3 pg (28.0-33.3); Mean Corpuscular Volume 86.6 fL (83.0-100.0); Mean Platelet Volume 11.9 fL (9.4-12.4); Monocytes # 0.7 K/mcL (0.0-1.3); Monocytes % 9.7 %; Neutrophils # 5.5 K/mcL (1.6-8.9); Platelet Count 246 K/mcL (140-400); Red Blood Count 3.14 M/mcL (3.82-4.97); Red Cell Distribution Width 15.7 % (11.5-14.5); Segmented Neutrophils % 75.4 %; White Blood Count 7.3 K/mcL (4.3-11.1)
[2019-01-25 07:24] LABS: INR 3.3
[2019-01-25] MEDS: Insulin LISPRO 300 UNITS/3 ML VIAL SQ SCH ×4 (07:32→20:07)
[2019-01-25 07:36] LABS: Phosphorous 3.6 mg/dL (2.7-4.5)
[2019-01-25 07:37] LABS: Albumin 2.3 g/dL (3.5-5.7); Albumin/Globulin Ratio 0.8 (1.1-2.2); Bilirubin,Direct 0.1 mg/dL (0.0-0.2); Bilirubin,Indirect 0.3 mg/dL (0.0-1.0); Bilirubin,Total 0.4 mg/dL (0.3-1.0); Total Protein 5.3 g/dL (6.4-8.9)
[2019-01-25] MEDS: Aspirin Enteric Coated 81 MG Tablet PO SCH (08:45)
[2019-01-25] MEDS: hydrALAZINE 25 MG TABLET PO SCH ×2 (08:45→15:07)
[2019-01-25] MEDS: Pantoprazole 40 MG VIAL IVP SCH (08:45)
[2019-01-25] MEDS: Pregabalin 75 MG CAPSULE PO SCH ×2 (08:45→20:04)
[2019-01-26] MEDS: hydrALAZINE 25 MG TABLET PO SCH ×4 (00:22→23:46)
[2019-01-26 05:13] LABS: Hematocrit 25.1 % (35.3-44.9); Mean Corpuscular HGB Conc 31.9 g/dL (31.6-35.5); Mean Corpuscular Hemoglobin 28.7 pg (28.0-33.3); Mean Platelet Volume 12.3 fL (9.4-12.4); Platelet Count 247 K/mcL (140-400); Red Blood Count 2.79 M/mcL (3.82-4.97); Red Cell Distribution Width 15.3 % (11.5-14.5); White Blood Count 8.1 K/mcL (4.3-11.1)
[2019-01-26 05:17] LABS: INR 2.5; Prothrombin Time 28.4 Seconds (9.4-12.1)
[2019-01-26 05:35] LABS: Magnesium 1.9 mg/dL (1.6-2.6); Potassium 4.2 mEq/L (3.5-5.1)
[2019-01-26] MEDS: Insulin LISPRO 300 UNITS/3 ML VIAL SQ SCH ×4 (08:01→22:13)
[2019-01-26] MEDS: Acetaminophen 325 MG TABLET PO PRN ×2 (09:57→16:08)
[2019-01-26] MEDS: Aspirin Enteric Coated 81 MG Tablet PO SCH (09:58)
[2019-01-26] MEDS: Pantoprazole 40 MG VIAL IVP SCH (09:58)
[2019-01-26] MEDS: Pregabalin 75 MG CAPSULE PO SCH ×2 (09:58→22:16)
[2019-01-26] MEDS: Furosemide 20 MG TABLET PO SCH (11:41)
[2019-01-26 16:31] LABS: Hematocrit 26.5 % (35.3-44.9); Hemoglobin 8.9 g/dL (11.5-15.4)
[2019-01-26] MEDS: *HR* OxyCODONE Immed Rel 5 MG TABLET PO PRN (17:14)
[2019-01-26] MEDS ORDERED: Warfarin perPT PO PRN (18:00)
[2019-01-26] MEDS ORDERED: *HR* Warfarin 2.5 MG TABLET PO ONE (18:00)
[2019-01-27 00:55] LABS: Hematocrit 24.7 % (35.3-44.9); Hemoglobin 7.7 g/dL (11.5-15.4); Mean Corpuscular HGB Conc 31.2 g/dL (31.6-35.5); Mean Corpuscular Hemoglobin 28.1 pg (28.0-33.3); Mean Corpuscular Volume 90.1 fL (83.0-100.0); Mean Platelet Volume 12.1 fL (9.4-12.4); Platelet Count 244 K/mcL (140-400); Red Blood Count 2.74 M/mcL (3.82-4.97); Red Cell Distribution Width 15.3 % (11.5-14.5); White Blood Count 6.7 K/mcL (4.3-11.1)
[2019-01-27 00:57] LABS: INR 2.5; Prothrombin Time 27.9 Seconds (9.4-12.1)
[2019-01-27 01:16] LABS: Calcium 7.8 mg/dL (8.6-10.3); Potassium 4.2 mEq/L (3.5-5.1)
[2019-01-27] MEDS: Pregabalin 75 MG CAPSULE PO SCH ×2 (08:29→19:48)
[2019-01-27] MEDS: hydrALAZINE 25 MG TABLET PO SCH ×2 (08:29→17:01)
[2019-01-27] MEDS: Aspirin Enteric Coated 81 MG Tablet PO SCH (08:30)
[2019-01-27] MEDS: Furosemide 20 MG TABLET PO SCH (08:30)
[2019-01-27] MEDS: Insulin LISPRO 300 UNITS/3 ML VIAL SQ SCH ×4 (08:34→20:32)
[2019-01-27 12:06] LABS: Hematocrit 24.9 % (35.3-44.9); Hemoglobin 8.3 g/dL (11.5-15.4)
[2019-01-27] MEDS ORDERED: *HR* Warfarin 3 MG TABLET PO ONE (18:00)
[2019-01-27] MEDS: *HR* OxyCODONE Immed Rel 5 MG TABLET PO PRN (19:48)
[2019-01-28] MEDS: hydrALAZINE 25 MG TABLET PO SCH ×3 (01:00→17:20)
[2019-01-28] MEDS ORDERED: Milk and Molasses Enema 200 ML RC ONE (03:48)
[2019-01-28 04:49] LABS: INR 2.1; Prothrombin Time 23.7 Seconds (9.4-12.1)
[2019-01-28 04:50] LABS: Hematocrit 26.8 % (35.3-44.9); Hemoglobin 8.4 g/dL (11.5-15.4)
[2019-01-28] MEDS: Insulin LISPRO 300 UNITS/3 ML VIAL SQ SCH ×4 (09:40→21:28)
[2019-01-28] MEDS: Aspirin Enteric Coated 81 MG Tablet PO SCH (09:49)
[2019-01-28] MEDS: Furosemide 20 MG TABLET PO SCH (09:50)
[2019-01-28 10:13] LABS: Calcium 8.4 mg/dL (8.6-10.3); Potassium 4.2 mEq/L (3.5-5.1)
[2019-01-28] MEDS ORDERED: *HR* Heparin 5,000 UNIT/ML VIAL IVP PRN ×2 (11:36)
[2019-01-28] MEDS: Pregabalin 75 MG CAPSULE PO SCH ×2 (12:07→21:28)
[2019-01-28] MEDS: amLODIPine 5 MG TABLET PO SCH (14:06)
[2019-01-28] MEDS: Heparin 25,000 UNIT/250 ML D5W 25,000 UNIT/250 ML IV.SOLN IVC SCH (15:07)
[2019-01-28] MEDS ORDERED: *HR* Warfarin 3 MG TABLET PO ONE (18:00)
[2019-01-29] MEDS: hydrALAZINE 25 MG TABLET PO SCH ×3 (02:21→17:14)
[2019-01-29 05:23] LABS: Hematocrit 23.6 % (35.3-44.9); Hemoglobin 7.4 g/dL (11.5-15.4)
[2019-01-29 05:26] LABS: Heparin anti-factor XA UFH 0.62 IU/mL (0.30-0.70)
[2019-01-29 05:27] LABS: INR 1.9; Prothrombin Time 22.1 Seconds (9.4-12.1)
[2019-01-29 05:41] LABS: Calcium 8.2 mg/dL (8.6-10.3); Potassium 4.1 mEq/L (3.5-5.1)
[2019-01-29] MEDS: Insulin LISPRO 300 UNITS/3 ML VIAL SQ SCH ×4 (08:10→22:36)
[2019-01-29] MEDS: Aspirin Enteric Coated 81 MG Tablet PO SCH (08:21)
[2019-01-29] MEDS: Furosemide 20 MG TABLET PO SCH (08:21)
[2019-01-29] MEDS: Pregabalin 75 MG CAPSULE PO SCH ×2 (08:21→20:38)
[2019-01-29] MEDS: amLODIPine 5 MG TABLET PO SCH (08:22)
[2019-01-29 11:25] LABS: Hemoglobin 7.8 g/dL (11.5-15.4)
[2019-01-29] MEDS: Heparin 25,000 UNIT/250 ML D5W 25,000 UNIT/250 ML IV.SOLN IVC SCH (13:16)
[2019-01-29] MEDS ORDERED: *HR* Warfarin 4 MG TABLET PO ONE (18:00)
[2019-01-30] MEDS: hydrALAZINE 25 MG TABLET PO SCH ×3 (01:06→17:15)
[2019-01-30 05:49] LABS: Hematocrit 22.9 % (35.3-44.9); Hemoglobin 7.4 g/dL (11.5-15.4); Mean Corpuscular HGB Conc 32.3 g/dL (31.6-35.5); Mean Corpuscular Hemoglobin 28.1 pg (28.0-33.3); Mean Corpuscular Volume 87.1 fL (83.0-100.0); Mean Platelet Volume 12.4 fL (9.4-12.4); Platelet Count 286 K/mcL (140-400); Red Blood Count 2.63 M/mcL (3.82-4.97); Red Cell Distribution Width 15.2 % (11.5-14.5); White Blood Count 7.3 K/mcL (4.3-11.1)
[2019-01-30 05:50] LABS: INR 2.6; Prothrombin Time 29.9 Seconds (9.4-12.1)
[2019-01-30 06:09] LABS: Calcium 8.3 mg/dL (8.6-10.3); Potassium 4.1 mEq/L (3.5-5.1)
[2019-01-30] MEDS: Insulin LISPRO 300 UNITS/3 ML VIAL SQ SCH ×4 (08:31→22:30)
[2019-01-30] MEDS: Pregabalin 75 MG CAPSULE PO SCH ×2 (08:42→22:30)
[2019-01-30] MEDS: Furosemide 20 MG TABLET PO SCH (08:48)
[2019-01-30] MEDS: Aspirin Enteric Coated 81 MG Tablet PO SCH (08:48)
[2019-01-30] MEDS: amLODIPine 5 MG TABLET PO SCH (08:48)
[2019-01-30] MEDS ORDERED: *HR* Warfarin 3 MG TABLET PO ONE (18:00)
[2019-01-31] MEDS: hydrALAZINE 25 MG TABLET PO SCH ×2 (00:37→08:28)
[2019-01-31 05:25] LABS: INR 3.3; Prothrombin Time 37.3 Seconds (9.4-12.1)
[2019-01-31 07:11] VITALS: BP 168/61
[2019-01-31] MEDS: Insulin LISPRO 300 UNITS/3 ML VIAL SQ SCH ×2 (08:23→11:54)
[2019-01-31] MEDS: Aspirin Enteric Coated 81 MG Tablet PO SCH (08:28)
[2019-01-31] MEDS: amLODIPine 5 MG TABLET PO SCH (08:28)
[2019-01-31] MEDS: Pregabalin 75 MG CAPSULE PO SCH (08:28)
[2019-01-31] MEDS: Furosemide 20 MG TABLET PO SCH (08:28)
[2019-01-31 10:47] LABS: Hematocrit 25.6 % (35.3-44.9); Hemoglobin 8.2 g/dL (11.5-15.4); INR 3.7; Mean Corpuscular Hemoglobin 28.5 pg (28.0-33.3); Mean Corpuscular Volume 88.9 fL (83.0-100.0); Platelet Count 257 K/mcL (140-400); Prothrombin Time 42.4 Seconds (9.4-12.1); Red Blood Count 2.88 M/mcL (3.82-4.97); Red Cell Distribution Width 15.3 % (11.5-14.5)
[2019-01-31 11:00] LABS: Calcium 8.3 mg/dL (8.6-10.3); Potassium 4.3 mEq/L (3.5-5.1)
[2019-01-31] MEDS ORDERED: *HR* Warfarin 1 MG TABLET PO ONE (18:00)
== END 2019-01-31 16:56 | DRG 377 ==
LOC: EMEROOARM 13:26 → SUATTDRO 16:42 → 2NENU 16:42 → INTOOBSV 16:42 → 2NENU 18:58 → SUATTDRO 01-18 19:33
PROVIDERS: ADMIT Internal Medicine; ATTEND Internal Medicine